=== PATIENT | female | born 1975 | race Caucasian/White ===

== ENCOUNTER 2023-06-30 12:50 | Emergency (ER) | payer SELFPAY ==
[~2023-06-30] VITALS: Ht 175.3 cm; Wt 63.5 kg
[2023-06-30] MEDS ORDERED: CYCLOBENZAPRINE HCL 10 MG TABLET PO ONE (13:15)
[2023-06-30] MEDS ORDERED: MORPHINE SULFATE 4 MG/1 ML DISP.SYRIN IV ONE (13:15)
[2023-06-30] MEDS ORDERED: CYCLOBENZAPRINE HCL 10 MG TABLET ONE (13:39)
[2023-06-30] MEDS ORDERED: MORPHINE SULFATE 4 MG/1 ML DISP.SYRIN ONE (13:39)
[2023-06-30 13:53] LABS: BASOPHILS # (AUTO) 0.1 K/UL (0.0-0.2); BASOPHILS % (AUTO) 0.3 % (0.0-2.0); EOSINOPHILS # (AUTO) 0.1 K/uL (0.0-0.7); EOSINOPHILS % (AUTO) 0.3 % (0.0-7.0); HEMATOCRIT 40.7 % (31.2-41.9); HEMOGLOBIN 13.6 g/dL (10.9-14.3); LYMPHOCYTES # (AUTO) 0.7 K/uL (0.8-4.8); LYMPHOCYTES % (AUTO) 2.9 % (20.5-51.5); MEAN CORPUSCULAR HEMOGLOBIN 34.6 uug (24.7-32.8); MEAN CORPUSCULAR HGB CONC 33 g/dL (32.3-35.6); MEAN CORPUSCULAR VOLUME 103.4 fL (75.5-95.3); MONOCYTES # (AUTO) 0.5 K/uL (0.1-1.30); MONOCYTES % (AUTO) 2.2 % (0.0-11.0); NEUTROPHILS # (AUTO) 21.9 K/uL (1.8-8.9); NEUTROPHILS % (AUTO) 94.3 % (38.5-71.5); PLATELET COUNT (AUTO) 245 K/uL (179-408); RED BLOOD CELL COUNT(AUTO) 3.94 MIL/uL (3.63-4.92); RED CELL DISTRIBUTION WIDTH 14.5 % (12.3-17.7); WHITE BLOOD COUNT (AUTO) 23.2 K/uL (3.8-11.8)
[2023-06-30 13:55] LABS: DIFFERENTIAL COMMENT 1
[2023-06-30 14:13] LABS: ALBUMIN 1.9 g/dL (3.4-5.0); BILIRUBIN,TOTAL 2.4 mg/dL (0.2-1.0); CALCIUM 9.6 mg/dL (8.5-10.1); CREATININE 1.4 mg/dL (0.6-1.3); POTASSIUM 3.3 mmol/L (3.5-5.1); TOTAL PROTEIN, SERUM 7.6 g/dL (6.4-8.2)
[2023-06-30] MEDS ORDERED: IV NORMAL SALINE 500 ML BAG IV ONE (14:30)
[2023-06-30 14:46] LABS: AMMONIA < 10 umol/L (11-32)
[2023-06-30 14:55] LABS: BASOPHILS # (AUTO) 0.1 K/UL (0.0-0.2); BASOPHILS % (AUTO) 0.3 % (0.0-2.0); EOSINOPHILS # (AUTO) 0.1 K/uL (0.0-0.7); EOSINOPHILS % (AUTO) 0.3 % (0.0-7.0); HEMATOCRIT 38.7 % (31.2-41.9); HEMOGLOBIN 13.1 g/dL (10.9-14.3); LYMPHOCYTES # (AUTO) 0.7 K/uL (0.8-4.8); LYMPHOCYTES % (AUTO) 3.9 % (20.5-51.5); MEAN CORPUSCULAR HEMOGLOBIN 34.7 uug (24.7-32.8); MEAN CORPUSCULAR HGB CONC 34 g/dL (32.3-35.6); MEAN CORPUSCULAR VOLUME 102.6 fL (75.5-95.3); MONOCYTES # (AUTO) 0.8 K/uL (0.1-1.30); MONOCYTES % (AUTO) 4.2 % (0.0-11.0); NEUTROPHILS # (AUTO) 16.7 K/uL (1.8-8.9); NEUTROPHILS % (AUTO) 91.3 % (38.5-71.5); PLATELET COUNT (AUTO) 231 K/uL (179-408); RED BLOOD CELL COUNT(AUTO) 3.77 MIL/uL (3.63-4.92); RED CELL DISTRIBUTION WIDTH 14.7 % (12.3-17.7); WHITE BLOOD COUNT (AUTO) 18.3 K/uL (3.8-11.8)
[2023-06-30 14:59] LABS: DIFFERENTIAL COMMENT 1
[2023-06-30 15:01] LABS: *BILIRUBIN,URIN 2+ (NEGATIVE); *BLOOD, URINE 3+ (NEGATIVE); *CLARITY,URINE TURBID (CLEAR); *COLOR,URINE YELLOW (YELLOW); *KETONES,URINE TRACE (NEGATIVE); *PROTEIN,URINE 3+ (NEGATIVE); LEUKOCYTE ESTERASE ,URINE TRACE (NEGATIVE); NITRITE, URINE POSITIVE (NEGATIVE); UGLUCOSE NEGATIVE (NEGATIVE)
[2023-06-30 15:03] LABS: *URINE HCG, QUAL NEGATIVE (NEGATIVE)
[2023-06-30 15:06] LABS: BACTERIA,URINE MANY /HPF (NONE SEEN); SQUAMOUS EPITHELIAL CELL,UR FEW /HPF (NONE SEEN); WBC,URINE 80-100 /HPF (0-3)
[2023-06-30 15:07] LABS: MUCUS,URINE MODERATE /LPF (0-FEW)
[2023-06-30 15:14] LABS: ACETAMINOPHEN < 2.0 ug/mL (10-30)
[2023-06-30] MEDS ORDERED: CEFTRIAXONE 1 G in IV DEXTROSE 5% 50 ML IV ONE (15:15)
[2023-06-30 15:19] LABS: CALCIUM 9.1 mg/dL (8.5-10.1); CREATININE 1.3 mg/dL (0.6-1.3); POTASSIUM 3.3 mmol/L (3.5-5.1)
[2023-06-30] MEDS ORDERED: CEFTRIAXONE /D5W 50ML IVPB **ER PYXIS IV ONE (15:19)
[2023-06-30 15:24] LABS: ALBUMIN 1.8 g/dL (3.4-5.0); BILIRUBIN,TOTAL 2.3 mg/dL (0.2-1.0); TOTAL PROTEIN, SERUM 6.8 g/dL (6.4-8.2)
[2023-06-30 15:39] LABS: LACTIC ACID 3.3 mmol/L (0.4-2.0)
[2023-06-30 16:38] VITALS: BP 128/67; TEMP 98; O2SAT 97
[2023-06-30] MEDS ORDERED: CYCL5TAB PO (16:44)
[2023-06-30] MEDS ORDERED: HYDR-4209 PO (16:44)
[2023-06-30] MEDS ORDERED: NITR100C11 PO (16:44)
[2023-06-30 21:21] LABS: BAND % (MANUAL) 34 % (0-10); LYMPHOCYTES % (MANUAL) 3 % (20-40); METAMYELOCYTES % 4 % (0-1); MONOCYTES % (MANUAL) 2 % (2-10); MYELOCYTES % 2 % (0-0); NEUTROPHILS % (MANUAL) 57 % (42-75)
[2023-06-30 21:22] LABS: ANISOCYTOSIS 1+; PLATELET ESTIMATE DECREASED
[2023-07-01 11:06] LABS: HEPATITIS A AB, IgM Negative (Negative); HEPATITIS B CORE AB, IgM Negative (Negative); HEPATITIS B CORE AB, TOTAL Negative (Negative); HEPATITIS B SURFACE AB, QUAL Non Reactive (.); HEPATITIS C VIRUS ANTIBODY Non Reactive (Non Reactive)
[2023-07-01] MEDS ORDERED: MV-M1TAB55 PO (15:39)
== END 2023-06-30 17:11 | disposition home or self-care (01) ==
LOC: ER 12:50
DX: N39.0 Urinary tract infection, site not specified (principal); N17.9 Acute kidney failure, unspecified; D72.829 Elevated white blood cell count, unspecified; M79.605 Pain in left leg; Z88.1 Allergy status to other antibiotic agents
CPT/HCPCS: 99285; 93970; 96365; 76705; 71045; 96361; 96375; 81001; 82140; 82550; 84703; 83880; 85025 ×2; 85379; 36415; 73080; 73090; 73110; 83605; 87086; 86803; 86705; 86709; 86706; 80299; 86704; 80053 ×2; 85007; J0696; J2270; J7040 ×2; 70030-TC; A4606; A4663

== ENCOUNTER 2023-07-01 15:06 | Inpatient (IN) | payer MEDICAID ==
[~2023-07-01] VITALS: Ht 182.9 cm; Wt 74.4 kg
[~2023-07-01 15:06] MED LIST: CYCL5TAB PO; HYDR-4209 PO; NITR100C11 PO
[2023-07-01] MEDS ORDERED: MV-M1TAB55 PO (15:39)
[2023-07-01 16:11] LABS: BASOPHILS # (AUTO) 0.1 K/UL (0.0-0.2); BASOPHILS % (AUTO) 0.5 % (0.0-2.0); EOSINOPHILS % (AUTO) 0.2 % (0.0-7.0); HEMATOCRIT 39.7 % (31.2-41.9); HEMOGLOBIN 13.2 g/dL (10.9-14.3); LYMPHOCYTES # (AUTO) 0.8 K/uL (0.8-4.8); LYMPHOCYTES % (AUTO) 3.8 % (20.5-51.5); MEAN CORPUSCULAR HEMOGLOBIN 34.2 uug (24.7-32.8); MEAN CORPUSCULAR HGB CONC 33 g/dL (32.3-35.6); MONOCYTES # (AUTO) 0.4 K/uL (0.1-1.30); MONOCYTES % (AUTO) 2.1 % (0.0-11.0); NEUTROPHILS % (AUTO) 93.4 % (38.5-71.5); PLATELET COUNT (AUTO) 252 K/uL (179-408); RED BLOOD CELL COUNT(AUTO) 3.86 MIL/uL (3.63-4.92); RED CELL DISTRIBUTION WIDTH 14.6 % (12.3-17.7); WHITE BLOOD COUNT (AUTO) 20.4 K/uL (3.8-11.8)
[2023-07-01 16:13] LABS: *BLOOD, URINE 3+ (NEGATIVE); *CLARITY,URINE CLOUDY (CLEAR); *COLOR,URINE Orange (YELLOW); *KETONES,URINE TRACE (NEGATIVE); LEUKOCYTE ESTERASE ,URINE NEGATIVE (NEGATIVE); NITRITE, URINE NEGATIVE (NEGATIVE); PH,URINE 5.5 (5.0-8.0); UGLUCOSE NEGATIVE (NEGATIVE)
[2023-07-01 16:35] LABS: *BILIRUBIN,URIN 3+ (NEGATIVE); *PROTEIN,URINE 3+ (NEGATIVE)
[2023-07-01 16:36] LABS: PREGNANCY TEST SERUM QUAN 4 miul/L (0-6)
[2023-07-01 16:39] LABS: DIFFERENTIAL COMMENT 1
[2023-07-01 16:51] LABS: CALCIUM 9.3 mg/dL (8.5-10.1); CARBON DIOXIDE 25 mmol/L (21-32); CHLORIDE 99 mmol/L (98-107); CREATININE 1.1 mg/dL (0.6-1.3); GLUCOSE 140 mg/dL (74-106); POTASSIUM 3.2 mmol/L (3.5-5.1); SODIUM SERUM 135 mmol/L (136-145); UREA NITROGEN, BLOOD 51 mg/dL (7-18)
[2023-07-01 16:55] LABS: ALANINE AMINOTRANSFERASE 121 U/L (14-59); ALBUMIN 1.6 g/dL (3.4-5.0); ALKALINE PHOSPHATASE 173 U/L (50-136); ASPARTATE AMINOTRANSFERASE 155 U/L (15-37); BILIRUBIN,DIRECT 2.2 mg/dL (0.0-0.2); BILIRUBIN,TOTAL 2.6 mg/dL (0.2-1.0); LIPASE 25 U/L (16-77); TOTAL PROTEIN, SERUM 6.9 g/dL (6.4-8.2)
[2023-07-01 16:56] LABS: LACTIC ACID 2.2 mmol/L (0.4-2.0)
[2023-07-01 18:01] LABS: BACTERIA,URINE MODERATE /HPF (NONE SEEN); URINE AMORPHOUS URATE MANY /HPF; WBC,URINE 0-3 /HPF (0-3)
[2023-07-01] MEDS ORDERED: CEFTRIAXONE /D5W 50ML IVPB **ER PYXIS IV ONE (19:27)
[2023-07-01] MEDS: CEFTRIAXONE 2 G in IV DEXTROSE 5% 100 ML IV ONE (19:30)
[2023-07-01] MEDS: IV NORMAL SALINE 1000 ML BAG IV ONE (19:30)
[2023-07-01] MEDS ORDERED: VANCOMYCIN IV 200 ML ONE (20:20)
[2023-07-01] MEDS: VANCOMYCIN IV 1,000 MG in IV DEXTROSE 5% 250 ML IV ONE (20:23)
[2023-07-01] MEDS ORDERED: ONDANSETRON 4 MG/2 ML VIAL IV PRN (22:45)
[2023-07-01] MEDS ORDERED: PIPERACILLIN SODIUM/TAZO 3.375 GM VIAL ONE (23:52)
[2023-07-02] MEDS: PIPERACILLIN SODIUM/TAZOBACTAM 3.375 G in IV DEXTROSE 5% 50 ML IV ONE (00:42)
[2023-07-02] MEDS: HYDROCODONE/APAP 5-325MG TABLET PO PRN (00:45)
[2023-07-02 00:46] VITALS: BP 117/68; TEMP 98; O2SAT 99
[2023-07-02 04:05] VITALS: BP 122/81; TEMP 97.8; O2SAT 90
[2023-07-02] MEDS: PANTOPRAZOLE SODIUM 40 MG TABLET.DR PO SCH (06:15)
[2023-07-02] MEDS: PIPERACILLIN SODIUM/TAZOBACTAM 3.375 G in IV DEXTROSE 5% 100 ML IV SCH (07:48)
[2023-07-02 07:54] LABS: BASOPHILS % (AUTO) 0.2 % (0.0-2.0); EOSINOPHILS % (AUTO) 0.2 % (0.0-7.0); HEMATOCRIT 34.6 % (31.2-41.9); HEMOGLOBIN 11.8 g/dL (10.9-14.3); LYMPHOCYTES # (AUTO) 0.7 K/uL (0.8-4.8); LYMPHOCYTES % (AUTO) 4.3 % (20.5-51.5); MEAN CORPUSCULAR HEMOGLOBIN 34.9 uug (24.7-32.8); MEAN CORPUSCULAR HGB CONC 34 g/dL (32.3-35.6); MEAN CORPUSCULAR VOLUME 102.6 fL (75.5-95.3); MONOCYTES # (AUTO) 0.5 K/uL (0.1-1.30); MONOCYTES % (AUTO) 3.3 % (0.0-11.0); NEUTROPHILS # (AUTO) 14.9 K/uL (1.8-8.9); PLATELET COUNT (AUTO) 226 K/uL (179-408); RED BLOOD CELL COUNT(AUTO) 3.37 MIL/uL (3.63-4.92); RED CELL DISTRIBUTION WIDTH 14.6 % (12.3-17.7); WHITE BLOOD COUNT (AUTO) 16.2 K/uL (3.8-11.8)
[2023-07-02 07:59] LABS: DIFFERENTIAL COMMENT 1
[2023-07-02 08:20] LABS: THYROID STIMULATING HORMONE 1.963 mIU/mL (0.358-3.740)
[2023-07-02 08:26] LABS: BILIRUBIN,TOTAL 1.7 mg/dL (0.2-1.0); CALCIUM 8.4 mg/dL (8.5-10.1); CREATININE 0.8 mg/dL (0.6-1.3); MAGNESIUM 2.6 mg/dL (1.8-2.4); PHOSPHOROUS 4.4 mg/dL (2.5-4.9); POTASSIUM 3.1 mmol/L (3.5-5.1); TOTAL PROTEIN, SERUM 5.6 g/dL (6.4-8.2)
[2023-07-02 08:28] LABS: ALBUMIN 1.2 g/dL (3.4-5.0)
[2023-07-02] MEDS: VANCOMYCIN IV 1,000 MG in IV DEXTROSE 5% 250 ML IV SCH (11:26)
[2023-07-02] MEDS: POTASSIUM CHLORIDE 20 MEQ TAB.PRT.SR PO ONE (11:26)
[2023-07-02] MEDS ORDERED: VANCOMYCIN IV 1,000 MG in IV DEXTROSE 5% 250 ML IV SCH (12:00)
[2023-07-02 12:15] VITALS: BP 106/74; TEMP 97.8; O2SAT 98
[2023-07-02 12:42] LABS: *AMPHETAMINE, URINE NEGATIVE (NEGATIVE); *BARBITURATE, URINE NEGATIVE (NEGATIVE); *BENZODIAZEPINE, URINE NEGATIVE (NEGATIVE); *CANNABINOID, URINE NEGATIVE (NEGATIVE); *COCCAINE, URINE NEGATIVE (NEGATIVE); *OPIATE, URINE POSITIVE (NEGATIVE); *PHENCYCLIDINE SCREEN,URINE NEGATIVE (NEGATIVE); FENTANYL, URINE NEGATIVE (NEGATIVE)
[2023-07-02] MEDS ORDERED: PIPERACILLIN SODIUM/TAZOBACTAM 3.375 G in IV DEXTROSE 5% 50 ML IV SCH (14:00)
[2023-07-02 20:45] VITALS: BP 135/75; TEMP 98.8; O2SAT 99
[2023-07-03] MEDS: PIPERACILLIN SODIUM/TAZOBACTAM 3.375 G in IV DEXTROSE 5% 50 ML IV SCH (00:58)
[2023-07-03 05:56] VITALS: BP 138/88; TEMP 97.9; O2SAT 97
[2023-07-03 07:39] LABS: BASOPHILS # (AUTO) 0.1 K/UL (0.0-0.2); BASOPHILS % (AUTO) 0.4 % (0.0-2.0); EOSINOPHILS % (AUTO) 0.2 % (0.0-7.0); HEMATOCRIT 32.6 % (31.2-41.9); HEMOGLOBIN 11.1 g/dL (10.9-14.3); LYMPHOCYTES % (AUTO) 5.9 % (20.5-51.5); MEAN CORPUSCULAR HEMOGLOBIN 35.1 uug (24.7-32.8); MEAN CORPUSCULAR HGB CONC 34 g/dL (32.3-35.6); MEAN CORPUSCULAR VOLUME 102.5 fL (75.5-95.3); MONOCYTES # (AUTO) 0.8 K/uL (0.1-1.30); NEUTROPHILS # (AUTO) 14.8 K/uL (1.8-8.9); NEUTROPHILS % (AUTO) 88.5 % (38.5-71.5); PLATELET COUNT (AUTO) 260 K/uL (179-408); RED BLOOD CELL COUNT(AUTO) 3.18 MIL/uL (3.63-4.92); WHITE BLOOD COUNT (AUTO) 16.8 K/uL (3.8-11.8)
[2023-07-03 07:42] LABS: DIFFERENTIAL COMMENT 1
[2023-07-03 07:52] LABS: BILIRUBIN,TOTAL 1.5 mg/dL (0.2-1.0); CREATININE 0.7 mg/dL (0.6-1.3); PHOSPHOROUS 4.6 mg/dL (2.5-4.9); POTASSIUM 3.4 mmol/L (3.5-5.1); TOTAL PROTEIN, SERUM 5.8 g/dL (6.4-8.2)
[2023-07-03 08:46] LABS: ALBUMIN 1.1 g/dL (3.4-5.0)
[2023-07-03 11:08] LABS: BAND % (MANUAL) 15 % (0-10); NEUTROPHILS % (MANUAL) 64 % (42-75)
[2023-07-03 11:09] LABS: ANISOCYTOSIS 1+; EOSINOPHILS % (MANUAL) 1 % (0-8); LYMPHOCYTES % (MANUAL) 8 % (20-40); MONOCYTES % (MANUAL) 10 % (2-10); PLATELET ESTIMATE ADEQUATE
[2023-07-03 11:34] VITALS: BP 124/83; TEMP 98; O2SAT 98
[2023-07-03] MEDS: POTASSIUM CHLORIDE 20 MEQ TAB.PRT.SR PO ONE (13:30)
[2023-07-03 15:48] VITALS: BP 134/85; TEMP 98.3; O2SAT 93
[2023-07-03] MEDS: IV NS 1000 ML 1,000 ML IV PRN (16:30)
[2023-07-03 20:00] VITALS: BP 123/70; TEMP 98.8; O2SAT 95
[2023-07-04 04:00] VITALS: BP 143/83; TEMP 98.2; O2SAT 97
[2023-07-04 07:26] LABS: BASOPHILS # (AUTO) 0.1 K/UL (0.0-0.2); BASOPHILS % (AUTO) 0.3 % (0.0-2.0); EOSINOPHILS % (AUTO) 0.1 % (0.0-7.0); HEMATOCRIT 30.2 % (31.2-41.9); HEMOGLOBIN 10.3 g/dL (10.9-14.3); LYMPHOCYTES # (AUTO) 1.1 K/uL (0.8-4.8); LYMPHOCYTES % (AUTO) 6.2 % (20.5-51.5); MEAN CORPUSCULAR HEMOGLOBIN 34.9 uug (24.7-32.8); MEAN CORPUSCULAR HGB CONC 34 g/dL (32.3-35.6); MEAN CORPUSCULAR VOLUME 102.1 fL (75.5-95.3); MONOCYTES # (AUTO) 1.3 K/uL (0.1-1.30); MONOCYTES % (AUTO) 7.5 % (0.0-11.0); NEUTROPHILS # (AUTO) 14.5 K/uL (1.8-8.9); NEUTROPHILS % (AUTO) 85.9 % (38.5-71.5); PLATELET COUNT (AUTO) 288 K/uL (179-408); RED BLOOD CELL COUNT(AUTO) 2.96 MIL/uL (3.63-4.92); RED CELL DISTRIBUTION WIDTH 14.8 % (12.3-17.7); WHITE BLOOD COUNT (AUTO) 16.9 K/uL (3.8-11.8)
[2023-07-04 07:50] LABS: DIFFERENTIAL COMMENT 1
[2023-07-04 08:13] LABS: BILIRUBIN,TOTAL 1.2 mg/dL (0.2-1.0); CALCIUM 8.3 mg/dL (8.5-10.1); CREATININE 0.6 mg/dL (0.6-1.3); MAGNESIUM 2.1 mg/dL (1.8-2.4); POTASSIUM 3.8 mmol/L (3.5-5.1); TOTAL PROTEIN, SERUM 5.8 g/dL (6.4-8.2)
[2023-07-04 08:18] LABS: ALBUMIN 1.1 g/dL (3.4-5.0)
[2023-07-04 09:30] LABS: HIV-1 p24 ANTIGEN NON REACTIVE (NONREACTIVE); HIV-1/2 ANTIBODY NON REACTIVE (NONREACTIVE)
[2023-07-04 11:47] VITALS: BP 133/84; TEMP 98.9; O2SAT 97
[2023-07-04] MEDS ORDERED: IV NORMAL SALINE 250 ML IV ONE (13:53)
[2023-07-04] MEDS ORDERED: SWABABLE VALVE TRANSFER SET EA MC ONE (13:53)
[2023-07-04] MEDS ORDERED: IOHEXOL 300MG/ML 100 ML INFUS..BTL ONE (13:53)
[2023-07-04] MEDS: PIPERACILLIN SODIUM/TAZOBACTAM 3.375 G in IV DEXTROSE 5% 100 ML IV SCH (15:09)
[2023-07-04 16:01] VITALS: BP 135/92; TEMP 98.4; O2SAT 99
[2023-07-04] MEDS: PROTEIN SUPPLEMENT (PROSTAT) 30 ML LIQUID PO SCH (18:05)
[2023-07-04 20:15] VITALS: BP 134/89; TEMP 98; O2SAT 100
[2023-07-04] MEDS: ENOXAPARIN SODIUM 40 MG/0.4 ML DISP.SYRIN SQ SCH (20:43)
[2023-07-04] MEDS: CEFAZOLIN 2 G in IV DEXTROSE 5% 100 ML IV SCH (23:53)
[2023-07-05 04:20] VITALS: BP 147/94; TEMP 98; O2SAT 96
[2023-07-05 11:40] VITALS: BP 125/84; TEMP 98.7; O2SAT 98
[2023-07-05 16:00] VITALS: BP 134/88; TEMP 98.3; O2SAT 98
[2023-07-05] MEDS: CEFEPIME HCL 2 GM in IV DEXTROSE 5% 100 ML IV SCH (16:47)
[2023-07-05] MEDS: CLINDAMYCIN PHOSPHATE IV 900 MG in IV DEXTROSE 5% 100 ML IV SCH (17:23)
[2023-07-05] MEDS: VANCOMYCIN IV 1,000 MG in IV DEXTROSE 5% 250 ML IV SCH (18:09)
[2023-07-05 19:25] VITALS: BP 125/83; TEMP 98.5; O2SAT 98
[2023-07-05] MEDS: MORPHINE SULFATE 2 MG/1 ML DISP.SYRIN IV PRN (21:15)
[2023-07-06 06:03] VITALS: BP 136/89; TEMP 98.1; O2SAT 98
[2023-07-06 07:20] LABS: BASOPHILS # (AUTO) 0.1 K/UL (0.0-0.2); BASOPHILS % (AUTO) 0.6 % (0.0-2.0); EOSINOPHILS # (AUTO) 0.1 K/uL (0.0-0.7); EOSINOPHILS % (AUTO) 0.8 % (0.0-7.0); HEMATOCRIT 28.2 % (31.2-41.9); HEMOGLOBIN 9.7 g/dL (10.9-14.3); LYMPHOCYTES # (AUTO) 0.8 K/uL (0.8-4.8); LYMPHOCYTES % (AUTO) 7.2 % (20.5-51.5); MEAN CORPUSCULAR HEMOGLOBIN 34.7 uug (24.7-32.8); MEAN CORPUSCULAR HGB CONC 34 g/dL (32.3-35.6); MEAN CORPUSCULAR VOLUME 101.4 fL (75.5-95.3); MONOCYTES % (AUTO) 8.6 % (0.0-11.0); NEUTROPHILS # (AUTO) 9.2 K/uL (1.8-8.9); NEUTROPHILS % (AUTO) 82.8 % (38.5-71.5); PLATELET COUNT (AUTO) 421 K/uL (179-408); RED BLOOD CELL COUNT(AUTO) 2.78 MIL/uL (3.63-4.92); RED CELL DISTRIBUTION WIDTH 14.4 % (12.3-17.7); WHITE BLOOD COUNT (AUTO) 11.1 K/uL (3.8-11.8)
[2023-07-06 07:34] LABS: DIFFERENTIAL COMMENT 1
[2023-07-06 07:36] LABS: CALCIUM 8.5 mg/dL (8.5-10.1); CREATININE 0.6 mg/dL (0.6-1.3); POTASSIUM 3.5 mmol/L (3.5-5.1)
[2023-07-06 07:50] VITALS: BP 127/86; TEMP 98.3; O2SAT 100
[2023-07-06 11:35] VITALS: BP 151/91; TEMP 97.9; O2SAT 100
[2023-07-06 15:40] VITALS: BP 115/69; TEMP 99.2; O2SAT 98
[2023-07-06 17:31] LABS: BAND % (MANUAL) 8 % (0-10); LYMPHOCYTES % (MANUAL) 11 % (20-40); MONOCYTES % (MANUAL) 12 % (2-10); NEUTROPHILS % (MANUAL) 69 % (42-75)
[2023-07-06 17:32] LABS: ANISOCYTOSIS 1+; PLATELET ESTIMATE ADEQUATE
[2023-07-06 17:40] LABS: *RHEUMATOID FACTOR SCREEN NEGATIVE (NEGATIVE)
[2023-07-06 18:34] LABS: FERRITIN 1699 ng/mL (8-252)
[2023-07-06] MEDS: VANCOMYCIN IV 1,250 MG in IV DEXTROSE 5% 250 ML IV SCH (19:15)
[2023-07-06 20:25] VITALS: BP 142/88; TEMP 98; O2SAT 100
[2023-07-07 00:55] VITALS: TEMP 98.9
[2023-07-07 06:20] VITALS: BP 137/87; TEMP 100.2; O2SAT 98
[2023-07-07 07:31] LABS: BASOPHILS # (AUTO) 0.4 K/UL (0.0-0.2); BASOPHILS % (AUTO) 4.7 % (0.0-2.0); EOSINOPHILS # (AUTO) 0.1 K/uL (0.0-0.7); EOSINOPHILS % (AUTO) 1.1 % (0.0-7.0); HEMATOCRIT 29.3 % (31.2-41.9); HEMOGLOBIN 10.1 g/dL (10.9-14.3); LYMPHOCYTES # (AUTO) 0.6 K/uL (0.8-4.8); LYMPHOCYTES % (AUTO) 6.9 % (20.5-51.5); MEAN CORPUSCULAR HEMOGLOBIN 34.7 uug (24.7-32.8); MEAN CORPUSCULAR HGB CONC 34 g/dL (32.3-35.6); MEAN CORPUSCULAR VOLUME 100.9 fL (75.5-95.3); MONOCYTES # (AUTO) 0.8 K/uL (0.1-1.30); NEUTROPHILS # (AUTO) 6.6 K/uL (1.8-8.9); NEUTROPHILS % (AUTO) 78.3 % (38.5-71.5); PLATELET COUNT (AUTO) 490 K/uL (179-408); RED BLOOD CELL COUNT(AUTO) 2.91 MIL/uL (3.63-4.92); RED CELL DISTRIBUTION WIDTH 14.3 % (12.3-17.7); WHITE BLOOD COUNT (AUTO) 8.4 K/uL (3.8-11.8)
[2023-07-07 07:49] LABS: DIFFERENTIAL COMMENT 1
[2023-07-07 08:26] LABS: BILIRUBIN,TOTAL 0.7 mg/dL (0.2-1.0); CALCIUM 8.3 mg/dL (8.5-10.1); CREATININE 0.6 mg/dL (0.6-1.3); MAGNESIUM 1.9 mg/dL (1.8-2.4); PHOSPHOROUS 3.9 mg/dL (2.5-4.9); POTASSIUM 3.6 mmol/L (3.5-5.1); TOTAL PROTEIN, SERUM 6.2 g/dL (6.4-8.2)
[2023-07-07 08:45] LABS: ALBUMIN 1.4 g/dL (3.4-5.0)
[2023-07-07 09:07] LABS: *IMMUNOGLOBULIN G, SERUM 1450 mg/dL (586-1602); HEPATITIS B SURFACE AB, QUAL Non Reactive (.); HEPATITIS B SURFACE AG Negative (Negative); IMMUNOGLOBULIN A, SERUM 245 mg/dL (87-352); IMMUNOGLOBULIN M, SERUM 325 mg/dL (26-217)
[2023-07-07 10:10] LABS: *ANTI-SCLERODERMA-70 AB <0.2 AI (0.0-0.9); *RNP ANTIBODIES <0.2 AI (0.0-0.9); *SJOGREN'S ANTI-SS-A <0.2 AI (0.0-0.9); *SJOGREN'S ANTI-SS-B <0.2 AI (0.0-0.9); *SMITH ANTIBODIES <0.2 AI (0.0-0.9); ANTI-DNA(DS) AB, QN <1 IU/mL (0-9); ANTI-NUCLEAR AB DIRECT Negative (Negative)
[2023-07-07] MEDS ORDERED: SWABABLE VALVE TRANSFER SET EA MC ONE (10:41)
[2023-07-07] MEDS ORDERED: IOHEXOL 300MG/ML 100 ML INFUS..BTL ONE (10:41)
[2023-07-07] MEDS ORDERED: IV NORMAL SALINE 250 ML IV ONE (10:41)
[2023-07-07 11:59] VITALS: BP 141/91; TEMP 98; O2SAT 99
[2023-07-07 13:08] LABS: FREE LAMBDA LT CHAIN SERUM 143.1 mg/L (5.7-26.3); KAPPA/LAMBDA RATIO SERUM 0.41 (0.26-1.65)
[2023-07-07 16:01] VITALS: BP 125/85; TEMP 98.4; O2SAT 97
[2023-07-07] MEDS: MORPHINE SULFATE 2 MG/1 ML DISP.SYRIN IV PRN (18:38)
[2023-07-07 20:00] VITALS: BP 139/88; TEMP 99; O2SAT 99
[2023-07-07] MEDS: NORMAL SALINE IV SCH (21:06)
[2023-07-07] MEDS: CLINDAMYCIN PHOSPHATE IV SCH (21:06)
[2023-07-08 04:00] VITALS: BP 130/80; TEMP 98.5; O2SAT 95
[2023-07-08 04:29] LABS: BASOPHILS % (AUTO) 0.3 % (0.0-2.0); EOSINOPHILS # (AUTO) 0.1 K/uL (0.0-0.7); EOSINOPHILS % (AUTO) 1.4 % (0.0-7.0); HEMATOCRIT 28.9 % (31.2-41.9); HEMOGLOBIN 10.2 g/dL (10.9-14.3); LYMPHOCYTES # (AUTO) 1.1 K/uL (0.8-4.8); LYMPHOCYTES % (AUTO) 12.5 % (20.5-51.5); MEAN CORPUSCULAR HEMOGLOBIN 35.2 uug (24.7-32.8); MEAN CORPUSCULAR HGB CONC 35 g/dL (32.3-35.6); MEAN CORPUSCULAR VOLUME 100.1 fL (75.5-95.3); MONOCYTES # (AUTO) 0.8 K/uL (0.1-1.30); MONOCYTES % (AUTO) 9.4 % (0.0-11.0); NEUTROPHILS # (AUTO) 6.5 K/uL (1.8-8.9); NEUTROPHILS % (AUTO) 76.4 % (38.5-71.5); PLATELET COUNT (AUTO) 599 K/uL (179-408); RED BLOOD CELL COUNT(AUTO) 2.89 MIL/uL (3.63-4.92); RED CELL DISTRIBUTION WIDTH 14.3 % (12.3-17.7); WHITE BLOOD COUNT (AUTO) 8.5 K/uL (3.8-11.8)
[2023-07-08 04:54] LABS: CALCIUM 8.3 mg/dL (8.5-10.1); CARBON DIOXIDE 27 mmol/L (21-32); CHLORIDE 103 mmol/L (98-107); CREATININE 0.6 mg/dL (0.6-1.3); GLUCOSE 124 mg/dL (74-106); POTASSIUM 3.4 mmol/L (3.5-5.1); SODIUM SERUM 136 mmol/L (136-145); UREA NITROGEN, BLOOD 6 mg/dL (7-18)
[2023-07-08 05:31] LABS: DIFFERENTIAL COMMENT 1
[2023-07-08] MEDS: POTASSIUM CHLORIDE 20 MEQ TAB.PRT.SR PO SCH (10:25)
[2023-07-08 11:23] VITALS: BP 125/82; TEMP 98.1; O2SAT 99
[2023-07-08] MEDS ORDERED: ALPRAZOLAM 0.5 MG TABLET PO SCH (12:15)
[2023-07-08] MEDS: ALPRAZOLAM 0.5 MG TABLET PO ONE (12:19)
[2023-07-08 15:48] VITALS: BP 136/84; TEMP 98.2; O2SAT 98
[2023-07-08] MEDS: GABAPENTIN 300 MG CAPSULE PO SCH (17:06)
[2023-07-08] MEDS ORDERED: GADOTERATE MEGLUMINE 10 MMOL/20 ML VIAL IV ONE (17:20)
[2023-07-09 07:56] LABS: BASOPHILS # (AUTO) 0.1 K/UL (0.0-0.2); BASOPHILS % (AUTO) 1.5 % (0.0-2.0); EOSINOPHILS # (AUTO) 0.1 K/uL (0.0-0.7); EOSINOPHILS % (AUTO) 1.8 % (0.0-7.0); HEMOGLOBIN 10.4 g/dL (10.9-14.3); LYMPHOCYTES # (AUTO) 0.7 K/uL (0.8-4.8); LYMPHOCYTES % (AUTO) 12.6 % (20.5-51.5); MEAN CORPUSCULAR HEMOGLOBIN 34.8 uug (24.7-32.8); MEAN CORPUSCULAR HGB CONC 35 g/dL (32.3-35.6); MEAN CORPUSCULAR VOLUME 100.3 fL (75.5-95.3); MONOCYTES # (AUTO) 0.6 K/uL (0.1-1.30); MONOCYTES % (AUTO) 10.6 % (0.0-11.0); NEUTROPHILS # (AUTO) 4.3 K/uL (1.8-8.9); NEUTROPHILS % (AUTO) 73.5 % (38.5-71.5); PLATELET COUNT (AUTO) 669 K/uL (179-408); RED BLOOD CELL COUNT(AUTO) 2.99 MIL/uL (3.63-4.92); RED CELL DISTRIBUTION WIDTH 14.3 % (12.3-17.7); WHITE BLOOD COUNT (AUTO) 5.9 K/uL (3.8-11.8)
[2023-07-09 07:58] LABS: DIFFERENTIAL COMMENT 1
[2023-07-09 08:10] LABS: CALCIUM 8.5 mg/dL (8.5-10.1); CREATININE 0.6 mg/dL (0.6-1.3); MAGNESIUM 1.8 mg/dL (1.8-2.4); PHOSPHOROUS 3.8 mg/dL (2.5-4.9); POTASSIUM 3.6 mmol/L (3.5-5.1)
[2023-07-09 12:00] VITALS: BP 132/83; TEMP 97.7; O2SAT 95
[2023-07-09 16:00] VITALS: BP 111/76; TEMP 98.1; O2SAT 100
[2023-07-09] MEDS: ENSURE ENLIVE (VAN) 240 ML LIQUID PO SCH (17:47)
[2023-07-09 21:00] VITALS: BP 130/80; TEMP 98; O2SAT 99
[2023-07-10] VITALS (7 sets, daily range): BP systolic 119–138; BP diastolic 68–89; TEMP 98–99.7; O2SAT 98–100
[2023-07-10 08:06] LABS: A/G RATIO 0.4 (0.7-1.7); ALBUMIN 1.8 g/dL (2.9-4.4); ALPHA-1-GLOBULIN 0.5 g/dL (0.0-0.4); GAMMA GLOBULIN 1.7 g/dL (0.4-1.8); GLOBULIN, TOTAL 4.2 g/dL (2.2-3.9); M-SPIKE Not Observed g/dL (Not Observed)
[2023-07-10 08:39] LABS: BASOPHILS # (AUTO) 0.2 K/UL (0.0-0.2); BASOPHILS % (AUTO) 3.3 % (0.0-2.0); EOSINOPHILS # (AUTO) 0.1 K/uL (0.0-0.7); EOSINOPHILS % (AUTO) 2.5 % (0.0-7.0); HEMATOCRIT 29.8 % (31.2-41.9); HEMOGLOBIN 10.3 g/dL (10.9-14.3); LYMPHOCYTES % (AUTO) 18.9 % (20.5-51.5); MEAN CORPUSCULAR HEMOGLOBIN 34.6 uug (24.7-32.8); MEAN CORPUSCULAR HGB CONC 35 g/dL (32.3-35.6); MEAN CORPUSCULAR VOLUME 99.7 fL (75.5-95.3); MONOCYTES # (AUTO) 0.7 K/uL (0.1-1.30); MONOCYTES % (AUTO) 12.7 % (0.0-11.0); NEUTROPHILS # (AUTO) 3.3 K/uL (1.8-8.9); NEUTROPHILS % (AUTO) 62.6 % (38.5-71.5); PLATELET COUNT (AUTO) 740 K/uL (179-408); RED BLOOD CELL COUNT(AUTO) 2.99 MIL/uL (3.63-4.92); RED CELL DISTRIBUTION WIDTH 14.2 % (12.3-17.7); WHITE BLOOD COUNT (AUTO) 5.3 K/uL (3.8-11.8)
[2023-07-10 09:21] LABS: DIFFERENTIAL COMMENT 1
[2023-07-10] MEDS: VANCOMYCIN IV 1,250 MG in IV DEXTROSE 5% 250 ML IV SCH (10:49)
[2023-07-10] MEDS: VITAMIN B COMPLEX 1 TABLET PO SCH (13:57)
[2023-07-10] MEDS: GABAPENTIN 300 MG CAPSULE PO SCH (16:26)
[2023-07-11 06:41] VITALS: BP 125/85; TEMP 98.1; O2SAT 94
[2023-07-11 07:20] LABS: BASOPHILS # (AUTO) 0.1 K/UL (0.0-0.2); BASOPHILS % (AUTO) 1.4 % (0.0-2.0); EOSINOPHILS # (AUTO) 0.2 K/uL (0.0-0.7); EOSINOPHILS % (AUTO) 3.2 % (0.0-7.0); HEMATOCRIT 30.2 % (31.2-41.9); HEMOGLOBIN 10.7 g/dL (10.9-14.3); LYMPHOCYTES # (AUTO) 0.7 K/uL (0.8-4.8); LYMPHOCYTES % (AUTO) 14.3 % (20.5-51.5); MEAN CORPUSCULAR HEMOGLOBIN 35.1 uug (24.7-32.8); MEAN CORPUSCULAR HGB CONC 35 g/dL (32.3-35.6); MEAN CORPUSCULAR VOLUME 99.5 fL (75.5-95.3); MONOCYTES # (AUTO) 0.7 K/uL (0.1-1.30); MONOCYTES % (AUTO) 14.5 % (0.0-11.0); NEUTROPHILS # (AUTO) 3.2 K/uL (1.8-8.9); NEUTROPHILS % (AUTO) 66.6 % (38.5-71.5); PLATELET COUNT (AUTO) 745 K/uL (179-408); RED BLOOD CELL COUNT(AUTO) 3.04 MIL/uL (3.63-4.92); RED CELL DISTRIBUTION WIDTH 14.3 % (12.3-17.7); WHITE BLOOD COUNT (AUTO) 4.9 K/uL (3.8-11.8)
[2023-07-11 07:21] LABS: DIFFERENTIAL COMMENT 1
[2023-07-11 07:34] LABS: CALCIUM 8.9 mg/dL (8.5-10.1); CREATININE 0.6 mg/dL (0.6-1.3); MAGNESIUM 1.9 mg/dL (1.8-2.4); PHOSPHOROUS 4.3 mg/dL (2.5-4.9); POTASSIUM 3.6 mmol/L (3.5-5.1)
[2023-07-11 11:22] VITALS: BP 119/69; TEMP 99; O2SAT 97
[2023-07-11 15:59] VITALS: BP 110/71; TEMP 98.5; O2SAT 98
[2023-07-11 20:00] VITALS: BP 124/64; TEMP 99.5; O2SAT 93
[2023-07-12 04:16] LABS: BASOPHILS # (AUTO) 0.1 K/UL (0.0-0.2); EOSINOPHILS # (AUTO) 0.2 K/uL (0.0-0.7); EOSINOPHILS % (AUTO) 4.1 % (0.0-7.0); HEMATOCRIT 27.4 % (31.2-41.9); HEMOGLOBIN 9.8 g/dL (10.9-14.3); LYMPHOCYTES # (AUTO) 0.8 K/uL (0.8-4.8); MEAN CORPUSCULAR HEMOGLOBIN 35.4 uug (24.7-32.8); MEAN CORPUSCULAR HGB CONC 36 g/dL (32.3-35.6); MEAN CORPUSCULAR VOLUME 99.3 fL (75.5-95.3); MONOCYTES # (AUTO) 0.8 K/uL (0.1-1.30); NEUTROPHILS # (AUTO) 3.2 K/uL (1.8-8.9); NEUTROPHILS % (AUTO) 64.2 % (38.5-71.5); PLATELET COUNT (AUTO) 629 K/uL (179-408); RED BLOOD CELL COUNT(AUTO) 2.76 MIL/uL (3.63-4.92)
[2023-07-12 04:29] LABS: DIFFERENTIAL COMMENT 1
[2023-07-12 04:30] LABS: LYMPHOCYTES % (AUTO) 17.8 % (20.5-51.5)
[2023-07-12 04:33] LABS: CREATININE 0.6 mg/dL (0.6-1.3); MAGNESIUM 1.8 mg/dL (1.8-2.4); PHOSPHOROUS 4.2 mg/dL (2.5-4.9); POTASSIUM 3.7 mmol/L (3.5-5.1); VANCOMYCIN,TROUGH 9.9 ug/mL (10.0-20.0)
[2023-07-12 06:00] VITALS: BP 117/76; TEMP 98.6; O2SAT 97
[2023-07-12 09:27] LABS: ALBUMIN 1.9 g/dL (3.4-5.0); BILIRUBIN,DIRECT 0.2 mg/dL (0.0-0.2); BILIRUBIN,TOTAL 0.4 mg/dL (0.2-1.0); TOTAL PROTEIN, SERUM 7.1 g/dL (6.4-8.2)
[2023-07-12 12:00] VITALS: BP 135/79; TEMP 97; O2SAT 99
[2023-07-12 15:15] LABS: C-REACTIVE PROTEIN 2.39 mg/dL (0.00-0.30)
[2023-07-12] MEDS: VANCOMYCIN IV 1,000 MG in IV DEXTROSE 5% 250 ML IV SCH (15:33)
[2023-07-12 16:00] VITALS: BP 128/81; TEMP 97.2; O2SAT 99
[2023-07-12 20:00] VITALS: BP 121/75; TEMP 98.5; O2SAT 95
[2023-07-13 04:00] VITALS: BP 120/70; TEMP 98.2; O2SAT 100
[2023-07-13 06:50] LABS: BASOPHILS # (AUTO) 0.1 K/UL (0.0-0.2); BASOPHILS % (AUTO) 1.3 % (0.0-2.0); EOSINOPHILS # (AUTO) 0.2 K/uL (0.0-0.7); EOSINOPHILS % (AUTO) 4.7 % (0.0-7.0); HEMATOCRIT 28.3 % (31.2-41.9); LYMPHOCYTES # (AUTO) 0.5 K/uL (0.8-4.8); LYMPHOCYTES % (AUTO) 10.6 % (20.5-51.5); MEAN CORPUSCULAR HEMOGLOBIN 34.6 uug (24.7-32.8); MEAN CORPUSCULAR HGB CONC 35 g/dL (32.3-35.6); MEAN CORPUSCULAR VOLUME 98.1 fL (75.5-95.3); MONOCYTES # (AUTO) 0.8 K/uL (0.1-1.30); MONOCYTES % (AUTO) 15.7 % (0.0-11.0); NEUTROPHILS # (AUTO) 3.3 K/uL (1.8-8.9); NEUTROPHILS % (AUTO) 67.7 % (38.5-71.5); PLATELET COUNT (AUTO) 592 K/uL (179-408); RED BLOOD CELL COUNT(AUTO) 2.88 MIL/uL (3.63-4.92); RED CELL DISTRIBUTION WIDTH 14.2 % (12.3-17.7); WHITE BLOOD COUNT (AUTO) 4.8 K/uL (3.8-11.8)
[2023-07-13 07:04] LABS: DIFFERENTIAL COMMENT 1
[2023-07-13] MEDS: VANCOMYCIN IV 1,000 MG in IV DEXTROSE 5% 250 ML IV SCH (11:36)
[2023-07-13 11:46] VITALS: BP 129/79; TEMP 99.9; O2SAT 99
[2023-07-13 12:50] LABS: BAND % (MANUAL) 5 % (0-10); BASOPHILS % (MANUAL) 1 % (0-2); EOSINOPHILS % (MANUAL) 2 % (0-8); LYMPHOCYTES % (MANUAL) 14 % (20-40); MONOCYTES % (MANUAL) 13 % (2-10); NEUTROPHILS % (MANUAL) 65 % (42-75)
[2023-07-13 12:51] LABS: ANISOCYTOSIS 1+; PLATELET ESTIMATE ADEQUATE
[2023-07-13 16:14] VITALS: BP 137/84; TEMP 99.1; O2SAT 95
[2023-07-13] MEDS: GABAPENTIN 400 MG CAPSULE PO SCH (17:31)
[2023-07-13 20:37] VITALS: BP 106/64; TEMP 99.1; O2SAT 95
[2023-07-14 05:13] VITALS: BP 110/63; TEMP 98.8; O2SAT 97
[2023-07-14 06:11] VITALS: BP 110/63; TEMP 98.8; O2SAT 97
[2023-07-14] MEDS: VANCOMYCIN IV 1,000 MG in IV DEXTROSE 5% 250 ML IV SCH (09:19)
[2023-07-14 11:22] VITALS: BP 107/71; TEMP 99.5; O2SAT 96
[2023-07-14] MEDS ORDERED: MORPHINE SULFATE 2 MG/1 ML DISP.SYRIN IV PRN (12:30)
[2023-07-14 15:59] VITALS: BP 104/65; TEMP 99.2; O2SAT 93
[2023-07-14 20:00] VITALS: BP 122/80; TEMP 102.9; O2SAT 99
[2023-07-14] MEDS: METRONIDAZOLE 500 MG/NS 100ML 500 MG in PREMIXED 1 EACH IV SCH (22:53)
[2023-07-15] MEDS: MORPHINE SULFATE 4 MG/1 ML DISP.SYRIN IV PRN (00:32)
[2023-07-15 06:00] VITALS: BP 107/69; TEMP 100.7; O2SAT 98
[2023-07-15 08:14] LABS: BASOPHILS % (AUTO) 1.6 % (0.0-2.0); EOSINOPHILS # (AUTO) 0.2 K/uL (0.0-0.7); EOSINOPHILS % (AUTO) 7.5 % (0.0-7.0); HEMATOCRIT 31.9 % (31.2-41.9); HEMOGLOBIN 11.1 g/dL (10.9-14.3); LYMPHOCYTES # (AUTO) 0.5 K/uL (0.8-4.8); LYMPHOCYTES % (AUTO) 25.5 % (20.5-51.5); MEAN CORPUSCULAR HEMOGLOBIN 34.3 uug (24.7-32.8); MEAN CORPUSCULAR HGB CONC 35 g/dL (32.3-35.6); MEAN CORPUSCULAR VOLUME 98.3 fL (75.5-95.3); MONOCYTES # (AUTO) 0.3 K/uL (0.1-1.30); MONOCYTES % (AUTO) 12.2 % (0.0-11.0); NEUTROPHILS # (AUTO) 1.1 K/uL (1.8-8.9); NEUTROPHILS % (AUTO) 53.2 % (38.5-71.5); PLATELET COUNT (AUTO) 371 K/uL (179-408); RED BLOOD CELL COUNT(AUTO) 3.24 MIL/uL (3.63-4.92); RED CELL DISTRIBUTION WIDTH 14.2 % (12.3-17.7); WHITE BLOOD COUNT (AUTO) 2.1 K/uL (3.8-11.8)
[2023-07-15 09:03] LABS: DIFFERENTIAL COMMENT 1
[2023-07-15 11:44] VITALS: BP 105/68; TEMP 99.1; O2SAT 96
[2023-07-15 12:11] LABS: CALCIUM 8.8 mg/dL (8.5-10.1); CREATININE 0.7 mg/dL (0.6-1.3); MAGNESIUM 1.9 mg/dL (1.8-2.4); PHOSPHOROUS 3.2 mg/dL (2.5-4.9); POTASSIUM 3.5 mmol/L (3.5-5.1); VANCOMYCIN,TROUGH 13.6 ug/mL (10.0-20.0)
[2023-07-15 12:52] LABS: *BILIRUBIN,URIN NEGATIVE (NEGATIVE); *BLOOD, URINE NEGATIVE (NEGATIVE); *CLARITY,URINE CLEAR (CLEAR); *COLOR,URINE YELLOW (YELLOW); *KETONES,URINE NEGATIVE (NEGATIVE); *PROTEIN,URINE TRACE (NEGATIVE); *UROBILINOGEN,URINE 0.2 E.U./dl (NORMAL); LEUKOCYTE ESTERASE ,URINE NEGATIVE (NEGATIVE); NITRITE, URINE NEGATIVE (NEGATIVE); PH,URINE 5.5 (5.0-8.0); UGLUCOSE NEGATIVE (NEGATIVE)
[2023-07-15 16:11] VITALS: BP 109/71; TEMP 99.1; O2SAT 98
[2023-07-15 20:00] VITALS: BP 117/67; TEMP 100.8; O2SAT 98
[2023-07-16] MEDS: ACETAMINOPHEN 325 MG TABLET PO PRN (02:58)
[2023-07-16] MEDS: MORPHINE SULFATE 2 MG/1 ML DISP.SYRIN IV PRN (03:04)
[2023-07-16 05:57] VITALS: BP 103/60; TEMP 99.6; O2SAT 92
[2023-07-16 07:59] LABS: BASOPHILS % (AUTO) 1.5 % (0.0-2.0); EOSINOPHILS # (AUTO) 0.3 K/uL (0.0-0.7); EOSINOPHILS % (AUTO) 9.5 % (0.0-7.0); HEMATOCRIT 29.1 % (31.2-41.9); HEMOGLOBIN 10.3 g/dL (10.9-14.3); LYMPHOCYTES # (AUTO) 0.7 K/uL (0.8-4.8); LYMPHOCYTES % (AUTO) 26.1 % (20.5-51.5); MEAN CORPUSCULAR HEMOGLOBIN 34.4 uug (24.7-32.8); MEAN CORPUSCULAR HGB CONC 35 g/dL (32.3-35.6); MEAN CORPUSCULAR VOLUME 96.9 fL (75.5-95.3); MONOCYTES # (AUTO) 0.3 K/uL (0.1-1.30); MONOCYTES % (AUTO) 10.4 % (0.0-11.0); NEUTROPHILS # (AUTO) 1.4 K/uL (1.8-8.9); NEUTROPHILS % (AUTO) 52.5 % (38.5-71.5); PLATELET COUNT (AUTO) 274 K/uL (179-408); RED CELL DISTRIBUTION WIDTH 14.5 % (12.3-17.7); WHITE BLOOD COUNT (AUTO) 2.7 K/uL (3.8-11.8)
[2023-07-16 08:35] LABS: ALBUMIN 2.2 g/dL (3.4-5.0); BILIRUBIN,TOTAL 0.4 mg/dL (0.2-1.0); CALCIUM 8.8 mg/dL (8.5-10.1); CREATININE 0.7 mg/dL (0.6-1.3); MAGNESIUM 1.8 mg/dL (1.8-2.4); PHOSPHOROUS 3.7 mg/dL (2.5-4.9); POTASSIUM 3.5 mmol/L (3.5-5.1); TOTAL PROTEIN, SERUM 7.6 g/dL (6.4-8.2)
[2023-07-16 09:33] VITALS: BP 106/64; TEMP 98.2; O2SAT 100
[2023-07-16] MEDS: ALPRAZOLAM 0.5 MG TABLET PO PRN (10:26)
[2023-07-16 12:08] LABS: ANISOCYTOSIS 1+; EOSINOPHILS % (MANUAL) 6 % (0-8); LYMPHOCYTES % (MANUAL) 26 % (20-40); MONOCYTES % (MANUAL) 5 % (2-10); NEUTROPHILS % (MANUAL) 63 % (42-75); PLATELET ESTIMATE ADEQUATE
[2023-07-16] MEDS: VANCOMYCIN IV 1,250 MG in IV DEXTROSE 5% 250 ML IV SCH (17:06)
[2023-07-16 19:40] VITALS: BP 118/68; TEMP 100.2; O2SAT 99
[2023-07-17 05:18] VITALS: BP 92/49; TEMP 98.6; O2SAT 100
[2023-07-17 07:16] LABS: BASOPHILS % (AUTO) 1.5 % (0.0-2.0); EOSINOPHILS # (AUTO) 0.3 K/uL (0.0-0.7); EOSINOPHILS % (AUTO) 12.5 % (0.0-7.0); HEMOGLOBIN 10.8 g/dL (10.9-14.3); LYMPHOCYTES # (AUTO) 0.8 K/uL (0.8-4.8); LYMPHOCYTES % (AUTO) 32.8 % (20.5-51.5); MEAN CORPUSCULAR HEMOGLOBIN 33.8 uug (24.7-32.8); MEAN CORPUSCULAR HGB CONC 35 g/dL (32.3-35.6); MEAN CORPUSCULAR VOLUME 96.8 fL (75.5-95.3); MONOCYTES # (AUTO) 0.1 K/uL (0.1-1.30); MONOCYTES % (AUTO) 5.8 % (0.0-11.0); NEUTROPHILS # (AUTO) 1.2 K/uL (1.8-8.9); NEUTROPHILS % (AUTO) 47.4 % (38.5-71.5); PLATELET COUNT (AUTO) 230 K/uL (179-408); RED CELL DISTRIBUTION WIDTH 14.8 % (12.3-17.7); WHITE BLOOD COUNT (AUTO) 2.5 K/uL (3.8-11.8)
[2023-07-17] MEDS ORDERED: IOHEXOL 300MG/ML 100 ML INFUS..BTL ONE (09:26)
[2023-07-17] MEDS ORDERED: SWABABLE VALVE TRANSFER SET EA MC ONE (09:26)
[2023-07-17] MEDS ORDERED: IV NORMAL SALINE 250 ML IV ONE (09:28)
[2023-07-17 11:35] VITALS: BP 98/45; TEMP 100.6; O2SAT 96
[2023-07-17 12:00] VITALS: O2SAT 98
[2023-07-17 15:48] VITALS: BP 104/63; TEMP 99.6; O2SAT 97
[2023-07-17 20:00] VITALS: BP 99/54; TEMP 99.1; O2SAT 96
[2023-07-18 06:32] VITALS: BP 123/72; TEMP 99.9; O2SAT 99
[2023-07-18 07:16] LABS: BILIRUBIN,TOTAL 0.4 mg/dL (0.2-1.0); CALCIUM 8.3 mg/dL (8.5-10.1); CREATININE 0.6 mg/dL (0.6-1.3); MAGNESIUM 1.9 mg/dL (1.8-2.4); POTASSIUM 3.5 mmol/L (3.5-5.1); TOTAL PROTEIN, SERUM 6.9 g/dL (6.4-8.2)
[2023-07-18 07:31] LABS: BASOPHILS % (AUTO) 1.3 % (0.0-2.0); EOSINOPHILS # (AUTO) 0.4 K/uL (0.0-0.7); EOSINOPHILS % (AUTO) 19.6 % (0.0-7.0); HEMATOCRIT 28.3 % (31.2-41.9); HEMOGLOBIN 9.7 g/dL (10.9-14.3); LYMPHOCYTES # (AUTO) 0.5 K/uL (0.8-4.8); LYMPHOCYTES % (AUTO) 29.8 % (20.5-51.5); MEAN CORPUSCULAR HEMOGLOBIN 33.2 uug (24.7-32.8); MEAN CORPUSCULAR HGB CONC 34 g/dL (32.3-35.6); MEAN CORPUSCULAR VOLUME 96.7 fL (75.5-95.3); MONOCYTES # (AUTO) 0.1 K/uL (0.1-1.30); NEUTROPHILS # (AUTO) 0.7 K/uL (1.8-8.9); NEUTROPHILS % (AUTO) 41.3 % (38.5-71.5); PLATELET COUNT (AUTO) 188 K/uL (179-408); RED BLOOD CELL COUNT(AUTO) 2.92 MIL/uL (3.63-4.92); RED CELL DISTRIBUTION WIDTH 14.6 % (12.3-17.7)
[2023-07-18 08:37] LABS: WHITE BLOOD COUNT (AUTO) 1.8 K/uL (3.8-11.8)
[2023-07-18 10:57] LABS: BAND % (MANUAL) 3 % (0-10); EOSINOPHILS % (MANUAL) 17 % (0-8); LYMPHOCYTES % (MANUAL) 26 % (20-40); MONOCYTES % (MANUAL) 11 % (2-10); NEUTROPHILS % (MANUAL) 43 % (42-75)
[2023-07-18 10:58] LABS: PLATELET ESTIMATE SLIGHT DECREASED
[2023-07-18] MEDS ORDERED: FILGRASTIM 480 MCG/1.6 ML VIAL SUBCUT SCH (11:15)
[2023-07-18 11:34] VITALS: BP 104/64; TEMP 98.2; O2SAT 94
[2023-07-18] MEDS ORDERED: FILGRASTIM 300 MCG/ML VIAL SUBCUT SCH (12:00)
[2023-07-18] MEDS ORDERED: TBO-FILGRASTIM 300 MCG/0.5 ML SYRINGE SQ SCH (12:00)
[2023-07-18] MEDS: TBO-FILGRASTIM 480 MCG/0.8 ML SYRINGE SQ SCH (12:16)
[2023-07-18 14:41] VITALS: O2SAT 95
[2023-07-18 15:43] VITALS: BP 122/78; TEMP 98.5; O2SAT 100
[2023-07-18 19:58] VITALS: O2SAT 97
[2023-07-18 20:20] VITALS: BP 127/71; TEMP 100.9; O2SAT 99
[2023-07-18] MEDS: MEROPENEM 1 G in IV NORMAL SALINE 100 ML IV SCH (21:44)
[2023-07-18] MEDS ORDERED: MEROPENEM 1,000 MG in IV NORMAL SALINE 50 ML IV SCH (22:00)
[2023-07-19 01:00] VITALS: TEMP 98.7; O2SAT 98
[2023-07-19 06:00] VITALS: BP 111/57; TEMP 98.2; O2SAT 98
[2023-07-19 07:26] LABS: BASOPHILS % (AUTO) 0.4 % (0.0-2.0); EOSINOPHILS # (AUTO) 0.6 K/uL (0.0-0.7); EOSINOPHILS % (AUTO) 4.9 % (0.0-7.0); HEMATOCRIT 23.5 % (31.2-41.9); HEMOGLOBIN 8.3 g/dL (10.9-14.3); LYMPHOCYTES # (AUTO) 0.8 K/uL (0.8-4.8); LYMPHOCYTES % (AUTO) 6.5 % (20.5-51.5); MEAN CORPUSCULAR HEMOGLOBIN 33.6 uug (24.7-32.8); MEAN CORPUSCULAR HGB CONC 35 g/dL (32.3-35.6); MONOCYTES # (AUTO) 0.4 K/uL (0.1-1.30); MONOCYTES % (AUTO) 2.9 % (0.0-11.0); NEUTROPHILS % (AUTO) 85.3 % (38.5-71.5); PLATELET COUNT (AUTO) 207 K/uL (179-408); RED CELL DISTRIBUTION WIDTH 15.2 % (12.3-17.7); WHITE BLOOD COUNT (AUTO) 12.8 K/uL (3.8-11.8)
[2023-07-19 07:43] LABS: DIFFERENTIAL COMMENT 1; RED BLOOD CELL COUNT(AUTO) 2.47 MIL/uL (3.63-4.92)
[2023-07-19 07:54] LABS: CALCIUM 8.4 mg/dL (8.5-10.1); CREATININE 0.6 mg/dL (0.6-1.3); MAGNESIUM 1.9 mg/dL (1.8-2.4); PHOSPHOROUS 2.9 mg/dL (2.5-4.9)
[2023-07-19 08:28] LABS: POTASSIUM 2.8 mmol/L (3.5-5.1)
[2023-07-19] MEDS: POTASSIUM CHLORIDE 10 MEQ TAB.PRT.SR PO ONE (08:44)
[2023-07-19] MEDS ORDERED: POTASSIUM CHLORIDE 10 MEQ TAB.PRT.SR PO SCH (09:30)
[2023-07-19 10:56] VITALS: BP 113/70; TEMP 100.8; O2SAT 98
[2023-07-19 11:40] VITALS: O2SAT 96
[2023-07-19 15:35] VITALS: BP 78/45; TEMP 98.7; O2SAT 96
[2023-07-19] MEDS: IV NORMAL SALINE 500 ML IV ONE (15:42)
[2023-07-19] MEDS: HYDROCODONE/APAP 5-325MG TABLET PO PRN (17:46)
[2023-07-19 20:00] VITALS: BP 100/58; TEMP 98.7; O2SAT 92
[2023-07-20 06:00] VITALS: BP 108/55; TEMP 98.1; O2SAT 96
[2023-07-20 07:16] LABS: BASOPHILS % (AUTO) 0.2 % (0.0-2.0); EOSINOPHILS # (AUTO) 0.4 K/uL (0.0-0.7); HEMATOCRIT 26.5 % (31.2-41.9); HEMOGLOBIN 9.4 g/dL (10.9-14.3); LYMPHOCYTES # (AUTO) 0.9 K/uL (0.8-4.8); LYMPHOCYTES % (AUTO) 11.9 % (20.5-51.5); MEAN CORPUSCULAR HEMOGLOBIN 33.9 uug (24.7-32.8); MEAN CORPUSCULAR HGB CONC 36 g/dL (32.3-35.6); MEAN CORPUSCULAR VOLUME 95.3 fL (75.5-95.3); MONOCYTES # (AUTO) 0.3 K/uL (0.1-1.30); MONOCYTES % (AUTO) 3.5 % (0.0-11.0); NEUTROPHILS # (AUTO) 5.7 K/uL (1.8-8.9); NEUTROPHILS % (AUTO) 78.4 % (38.5-71.5); PLATELET COUNT (AUTO) 225 K/uL (179-408); RED BLOOD CELL COUNT(AUTO) 2.78 MIL/uL (3.63-4.92); RED CELL DISTRIBUTION WIDTH 15.4 % (12.3-17.7); WHITE BLOOD COUNT (AUTO) 7.3 K/uL (3.8-11.8)
[2023-07-20 07:31] LABS: CALCIUM 8.3 mg/dL (8.5-10.1); CREATININE 0.7 mg/dL (0.6-1.3); MAGNESIUM 1.9 mg/dL (1.8-2.4); PHOSPHOROUS 2.6 mg/dL (2.5-4.9); POTASSIUM 3.6 mmol/L (3.5-5.1)
[2023-07-20 07:44] LABS: DIFFERENTIAL COMMENT 1
[2023-07-20 11:29] VITALS: BP 103/62; TEMP 98.3; O2SAT 98
[2023-07-20] MEDS: VANCOMYCIN IV 1,250 MG in IV DEXTROSE 5% 250 ML IV SCH (13:35)
[2023-07-20 14:00] VITALS: O2SAT 96
[2023-07-20 15:15] VITALS: BP 102/63; TEMP 98.2; O2SAT 99
[2023-07-20 20:00] VITALS: BP 108/72; TEMP 98; O2SAT 99
[2023-07-21 01:32] VITALS: O2SAT 96
[2023-07-21 06:00] VITALS: BP 118/79; TEMP 99; O2SAT 93
[2023-07-21 10:19] LABS: BASOPHILS % (AUTO) 0.6 % (0.0-2.0); DIFFERENTIAL COMMENT 0; EOSINOPHILS # (AUTO) 0.6 K/uL (0.0-0.7); EOSINOPHILS % (AUTO) 13.1 % (0.0-7.0); HEMATOCRIT 25.4 % (31.2-41.9); HEMOGLOBIN 8.8 g/dL (10.9-14.3); LYMPHOCYTES # (AUTO) 0.6 K/uL (0.8-4.8); LYMPHOCYTES % (AUTO) 13.7 % (20.5-51.5); MEAN CORPUSCULAR HEMOGLOBIN 33.1 uug (24.7-32.8); MEAN CORPUSCULAR HGB CONC 35 g/dL (32.3-35.6); MEAN CORPUSCULAR VOLUME 95.4 fL (75.5-95.3); MONOCYTES # (AUTO) 0.3 K/uL (0.1-1.30); MONOCYTES % (AUTO) 6.4 % (0.0-11.0); NEUTROPHILS # (AUTO) 2.9 K/uL (1.8-8.9); NEUTROPHILS % (AUTO) 66.2 % (38.5-71.5); PLATELET COUNT (AUTO) 264 K/uL (179-408); RED BLOOD CELL COUNT(AUTO) 2.66 MIL/uL (3.63-4.92); RED CELL DISTRIBUTION WIDTH 15.1 % (12.3-17.7); WHITE BLOOD COUNT (AUTO) 4.4 K/uL (3.8-11.8)
[2023-07-21 10:29] LABS: CALCIUM 7.9 mg/dL (8.5-10.1); CREATININE 0.7 mg/dL (0.6-1.3); MAGNESIUM 1.6 mg/dL (1.8-2.4); PHOSPHOROUS 2.4 mg/dL (2.5-4.9); POTASSIUM 3.6 mmol/L (3.5-5.1)
[2023-07-21 11:51] VITALS: BP 113/81; TEMP 100; O2SAT 97
[2023-07-21] MEDS ORDERED: MORPHINE SULFATE 2 MG/1 ML DISP.SYRIN IV PRN (14:45)
[2023-07-21] MEDS ORDERED: KETOROLAC TROMETHAMINE 30 MG INJ IVP PRN (15:15)
[2023-07-21 16:15] VITALS: BP 100/63; TEMP 100; O2SAT 97
[2023-07-21] MEDS: NEUTRA PHOS PACKET PO ONE (16:54)
[2023-07-21 20:00] VITALS: BP 111/65; TEMP 100; O2SAT 98
[2023-07-22] MEDS: HYDROCODONE/APAP 5-325MG TABLET PO PRN (02:54)
[2023-07-22 07:15] LABS: BASOPHILS % (AUTO) 0.5 % (0.0-2.0); EOSINOPHILS # (AUTO) 0.4 K/uL (0.0-0.7); EOSINOPHILS % (AUTO) 14.5 % (0.0-7.0); HEMATOCRIT 26.5 % (31.2-41.9); HEMOGLOBIN 9.3 g/dL (10.9-14.3); LYMPHOCYTES # (AUTO) 0.5 K/uL (0.8-4.8); LYMPHOCYTES % (AUTO) 19.7 % (20.5-51.5); MEAN CORPUSCULAR HEMOGLOBIN 33.2 uug (24.7-32.8); MEAN CORPUSCULAR HGB CONC 35 g/dL (32.3-35.6); MEAN CORPUSCULAR VOLUME 94.5 fL (75.5-95.3); MONOCYTES # (AUTO) 0.3 K/uL (0.1-1.30); MONOCYTES % (AUTO) 11.6 % (0.0-11.0); NEUTROPHILS # (AUTO) 1.3 K/uL (1.8-8.9); NEUTROPHILS % (AUTO) 53.7 % (38.5-71.5); PLATELET COUNT (AUTO) 283 K/uL (179-408); RED CELL DISTRIBUTION WIDTH 15.8 % (12.3-17.7); WHITE BLOOD COUNT (AUTO) 2.5 K/uL (3.8-11.8)
[2023-07-22 07:23] LABS: DIFFERENTIAL COMMENT 1
[2023-07-22 07:29] LABS: CREATININE 0.7 mg/dL (0.6-1.3); MAGNESIUM 1.8 mg/dL (1.8-2.4); PHOSPHOROUS 3.8 mg/dL (2.5-4.9); POTASSIUM 2.9 mmol/L (3.5-5.1)
[2023-07-22 10:52] LABS: *BILIRUBIN,URIN NEGATIVE (NEGATIVE); *CLARITY,URINE CLEAR (CLEAR); *COLOR,URINE LIGHT YELLOW (YELLOW); *KETONES,URINE NEGATIVE (NEGATIVE); *PROTEIN,URINE 1+ (NEGATIVE); *UROBILINOGEN,URINE 0.2 E.U./dl (NORMAL); LEUKOCYTE ESTERASE ,URINE NEGATIVE (NEGATIVE); NITRITE, URINE NEGATIVE (NEGATIVE); PH,URINE 6.5 (5.0-8.0); UGLUCOSE NEGATIVE (NEGATIVE)
[2023-07-22 10:57] LABS: *BLOOD, URINE TRACE (NEGATIVE)
[2023-07-22 11:29] VITALS: BP 93/49; TEMP 102.8; O2SAT 96
[2023-07-22 11:46] LABS: BACTERIA,URINE RARE /HPF (NONE SEEN); RBC,URINE 0-3 /HPF (0-3); SQUAMOUS EPITHELIAL CELL,UR FEW /HPF (NONE SEEN); URINE AMORPHOUS URATE FEW /HPF; WBC,URINE 0-3 /HPF (0-3)
[2023-07-22 11:48] LABS: URIC ACID CRYSTALS,URINE MODERATE /HPF (NONE SEEN)
[2023-07-22 11:49] VITALS: O2SAT 96
[2023-07-22] MEDS: IV NORMAL SALINE 500 ML IV ONE (11:54)
[2023-07-22] MEDS: POTASSIUM CHLORIDE 20 MEQ TAB.PRT.SR PO SCH (13:24)
[2023-07-22] MEDS ORDERED: AMMONIUM LACTATE 12% LOTION 225 GM BOTTLE TP PRN (13:30)
[2023-07-22] MEDS: AMMONIUM LACTATE 12% LOTION 225 GM BOTTLE TP PRN (15:46)
[2023-07-22 16:38] VITALS: BP 110/69; TEMP 102.5; O2SAT 97
[2023-07-22] MEDS: VANCOMYCIN IV 1,250 MG in IV DEXTROSE 5% 250 ML IV SCH (17:48)
[2023-07-22 20:06] VITALS: BP 97/58; TEMP 102.2; O2SAT 95
[2023-07-22 20:36] VITALS: O2SAT 95
[2023-07-23 07:45] LABS: BASOPHILS % (AUTO) 0.5 % (0.0-2.0); EOSINOPHILS # (AUTO) 0.5 K/uL (0.0-0.7); EOSINOPHILS % (AUTO) 15.7 % (0.0-7.0); HEMATOCRIT 28.1 % (31.2-41.9); HEMOGLOBIN 9.7 g/dL (10.9-14.3); LYMPHOCYTES # (AUTO) 0.6 K/uL (0.8-4.8); LYMPHOCYTES % (AUTO) 20.7 % (20.5-51.5); MEAN CORPUSCULAR HGB CONC 35 g/dL (32.3-35.6); MEAN CORPUSCULAR VOLUME 95.6 fL (75.5-95.3); MONOCYTES # (AUTO) 0.1 K/uL (0.1-1.30); MONOCYTES % (AUTO) 4.7 % (0.0-11.0); NEUTROPHILS # (AUTO) 1.7 K/uL (1.8-8.9); NEUTROPHILS % (AUTO) 58.4 % (38.5-71.5); PLATELET COUNT (AUTO) 317 K/uL (179-408); RED BLOOD CELL COUNT(AUTO) 2.94 MIL/uL (3.63-4.92)
[2023-07-23 08:05] LABS: DIFFERENTIAL COMMENT 1
[2023-07-23 08:54] LABS: CALCIUM 8.3 mg/dL (8.5-10.1); CREATININE 0.8 mg/dL (0.6-1.3); MAGNESIUM 1.9 mg/dL (1.8-2.4); PHOSPHOROUS 2.4 mg/dL (2.5-4.9)
[2023-07-23] MEDS: MICAFUNGIN SODIUM 100 MG in IV NORMAL SALINE 100 ML IV SCH ×2 (09:10)
[2023-07-23 11:23] VITALS: BP 108/63; TEMP 99.8; O2SAT 95
[2023-07-23 15:00] VITALS: O2SAT 97
[2023-07-23 16:49] VITALS: BP 105/75; TEMP 98.7; O2SAT 99
[2023-07-23] MEDS: NEUTRA PHOS PACKET PO ONE (17:58)
[2023-07-23 19:50] VITALS: BP 122/81; TEMP 100.4; O2SAT 95
[2023-07-23 20:48] VITALS: O2SAT 97
[2023-07-24] MEDS: HYDROCODONE/APAP 10-325 MG TABLET PO PRN (00:49)
[2023-07-24 05:48] LABS: BASOPHILS % (AUTO) 0.6 % (0.0-2.0); EOSINOPHILS # (AUTO) 0.4 K/uL (0.0-0.7); EOSINOPHILS % (AUTO) 16.4 % (0.0-7.0); HEMATOCRIT 30.1 % (31.2-41.9); HEMOGLOBIN 10.3 g/dL (10.9-14.3); LYMPHOCYTES # (AUTO) 0.5 K/uL (0.8-4.8); LYMPHOCYTES % (AUTO) 19.3 % (20.5-51.5); MEAN CORPUSCULAR HEMOGLOBIN 32.6 uug (24.7-32.8); MEAN CORPUSCULAR HGB CONC 34 g/dL (32.3-35.6); MONOCYTES # (AUTO) 0.1 K/uL (0.1-1.30); MONOCYTES % (AUTO) 6.3 % (0.0-11.0); NEUTROPHILS # (AUTO) 1.4 K/uL (1.8-8.9); NEUTROPHILS % (AUTO) 57.4 % (38.5-71.5); PLATELET COUNT (AUTO) 334 K/uL (179-408); RED BLOOD CELL COUNT(AUTO) 3.17 MIL/uL (3.63-4.92); WHITE BLOOD COUNT (AUTO) 2.4 K/uL (3.8-11.8)
[2023-07-24 06:36] VITALS: BP 112/75; TEMP 98.7; O2SAT 97
[2023-07-24 07:00] LABS: CALCIUM 8.2 mg/dL (8.5-10.1); CREATININE 0.7 mg/dL (0.6-1.3); DIFFERENTIAL COMMENT 1; MAGNESIUM 1.8 mg/dL (1.8-2.4); PHOSPHOROUS 2.7 mg/dL (2.5-4.9); POTASSIUM 3.8 mmol/L (3.5-5.1)
[2023-07-24 11:44] VITALS: BP 100/57; TEMP 98.3; O2SAT 96
[2023-07-24] MEDS: VANCOMYCIN IV 1,250 MG in IV DEXTROSE 5% 250 ML IV SCH (12:38)
[2023-07-24 13:44] VITALS: O2SAT 96
[2023-07-24] MEDS: ALPRAZOLAM 0.25 MG TABLET PO PRN (16:13)
[2023-07-24 16:30] VITALS: BP 131/86; TEMP 98.5; O2SAT 94
[2023-07-24 19:20] VITALS: BP 121/71; TEMP 101.2; O2SAT 94
[2023-07-25] VITALS (7 sets, daily range): BP systolic 92–131; BP diastolic 57–77; TEMP 97.8–100; O2SAT 94–97
[2023-07-25] MEDS ORDERED: MICAFUNGIN SODIUM 100 MG in IV NORMAL SALINE 100 ML IV SCH (09:00)
[2023-07-25] MEDS: diphenhydrAMINE 50 MG/1 ML VIAL IV PRN (10:25)
[2023-07-25 14:13] LABS: BASOPHILS % (AUTO) 0.8 % (0.0-2.0); EOSINOPHILS # (AUTO) 0.4 K/uL (0.0-0.7); EOSINOPHILS % (AUTO) 10.7 % (0.0-7.0); HEMATOCRIT 28.5 % (31.2-41.9); HEMOGLOBIN 9.9 g/dL (10.9-14.3); LYMPHOCYTES # (AUTO) 0.3 K/uL (0.8-4.8); LYMPHOCYTES % (AUTO) 10.1 % (20.5-51.5); MEAN CORPUSCULAR HEMOGLOBIN 32.7 uug (24.7-32.8); MEAN CORPUSCULAR HGB CONC 35 g/dL (32.3-35.6); MONOCYTES # (AUTO) 0.1 K/uL (0.1-1.30); NEUTROPHILS # (AUTO) 2.6 K/uL (1.8-8.9); NEUTROPHILS % (AUTO) 76.4 % (38.5-71.5); PLATELET COUNT (AUTO) 370 K/uL (179-408); RED BLOOD CELL COUNT(AUTO) 3.03 MIL/uL (3.63-4.92); RED CELL DISTRIBUTION WIDTH 16.6 % (12.3-17.7); WHITE BLOOD COUNT (AUTO) 3.4 K/uL (3.8-11.8)
[2023-07-25] MEDS ORDERED: GADOTERATE MEGLUMINE 10 MMOL/20 ML VIAL IV ONE (14:24)
[2023-07-25 14:31] LABS: CALCIUM 8.3 mg/dL (8.5-10.1); CREATININE 0.7 mg/dL (0.6-1.3); MAGNESIUM 1.9 mg/dL (1.8-2.4); PHOSPHOROUS 2.9 mg/dL (2.5-4.9); POTASSIUM 3.2 mmol/L (3.5-5.1)
[2023-07-25 14:39] LABS: DIFFERENTIAL COMMENT 1
[2023-07-26 06:00] VITALS: BP 95/56; TEMP 97.8; O2SAT 94
[2023-07-26 11:39] VITALS: BP 101/62; TEMP 98.6; O2SAT 95
[2023-07-26] MEDS: methylPREDNISolone SOD SUCC 40 MG/ML VIAL IV SCH (12:02)
[2023-07-26 12:50] LABS: BASOPHILS # (AUTO) 0.1 K/UL (0.0-0.2); BASOPHILS % (AUTO) 1.1 % (0.0-2.0); EOSINOPHILS # (AUTO) 0.4 K/uL (0.0-0.7); EOSINOPHILS % (AUTO) 7.9 % (0.0-7.0); HEMOGLOBIN 9.6 g/dL (10.9-14.3); LYMPHOCYTES # (AUTO) 0.4 K/uL (0.8-4.8); LYMPHOCYTES % (AUTO) 7.1 % (20.5-51.5); MEAN CORPUSCULAR HEMOGLOBIN 31.8 uug (24.7-32.8); MEAN CORPUSCULAR HGB CONC 34 g/dL (32.3-35.6); MEAN CORPUSCULAR VOLUME 93.2 fL (75.5-95.3); MONOCYTES # (AUTO) 0.1 K/uL (0.1-1.30); MONOCYTES % (AUTO) 2.3 % (0.0-11.0); NEUTROPHILS # (AUTO) 4.1 K/uL (1.8-8.9); NEUTROPHILS % (AUTO) 81.6 % (38.5-71.5); PLATELET COUNT (AUTO) 351 K/uL (179-408); RED CELL DISTRIBUTION WIDTH 16.7 % (12.3-17.7); WHITE BLOOD COUNT (AUTO) 5.1 K/uL (3.8-11.8)
[2023-07-26 13:08] LABS: DIFFERENTIAL COMMENT 1
[2023-07-26 16:18] VITALS: O2SAT 96
[2023-07-26] MEDS ORDERED: TRIAMCINOLONE ACET 0.1% CREAM 15 GM TUBE TOP PRN (17:45)
[2023-07-26 20:00] VITALS: BP 108/63; TEMP 98.3; O2SAT 95
[2023-07-26 20:45] VITALS: O2SAT 96
[2023-07-27 06:00] VITALS: BP 129/90; TEMP 97.6; O2SAT 93
[2023-07-27 07:05] LABS: BASOPHILS % (AUTO) 1.5 % (0.0-2.0); EOSINOPHILS % (AUTO) 1.1 % (0.0-7.0); HEMATOCRIT 32.6 % (31.2-41.9); HEMOGLOBIN 11.1 g/dL (10.9-14.3); LYMPHOCYTES # (AUTO) 0.6 K/uL (0.8-4.8); LYMPHOCYTES % (AUTO) 23.3 % (20.5-51.5); MEAN CORPUSCULAR HGB CONC 34 g/dL (32.3-35.6); MEAN CORPUSCULAR VOLUME 93.6 fL (75.5-95.3); MONOCYTES # (AUTO) 0.1 K/uL (0.1-1.30); MONOCYTES % (AUTO) 2.3 % (0.0-11.0); NEUTROPHILS % (AUTO) 71.8 % (38.5-71.5); PLATELET COUNT (AUTO) 376 K/uL (179-408); RED BLOOD CELL COUNT(AUTO) 3.48 MIL/uL (3.63-4.92); RED CELL DISTRIBUTION WIDTH 16.6 % (12.3-17.7); WHITE BLOOD COUNT (AUTO) 2.7 K/uL (3.8-11.8)
[2023-07-27 07:07] LABS: BILIRUBIN,TOTAL 0.5 mg/dL (0.2-1.0); CALCIUM 8.7 mg/dL (8.5-10.1); CREATININE 0.6 mg/dL (0.6-1.3); MAGNESIUM 2.2 mg/dL (1.8-2.4); PHOSPHOROUS 3.6 mg/dL (2.5-4.9); POTASSIUM 3.7 mmol/L (3.5-5.1); TOTAL PROTEIN, SERUM 6.6 g/dL (6.4-8.2)
[2023-07-27 07:11] LABS: DIFFERENTIAL COMMENT 1
[2023-07-27] MEDS ORDERED: PROPOFOL 200 MG/20 ML BOTTLE ONE (08:09)
[2023-07-27 09:10] VITALS: BP 125/82; TEMP 97.5; O2SAT 95
[2023-07-27 13:53] VITALS: O2SAT 97
[2023-07-27] MEDS ORDERED: NALOXONE HCL 0.4 MG/ML AMPUL IV PRN (14:15)
[2023-07-27] MEDS: OXYCODONE HCL 10 MG TAB.SR.12H PO SCH (15:11)
[2023-07-27 16:00] VITALS: BP 125/81; TEMP 98; O2SAT 93
[2023-07-27] MEDS: TRIAMCINOLONE ACET 0.1% CREAM 15 GM TUBE TOP SCH (17:14)
[2023-07-27 19:30] VITALS: BP 120/82; TEMP 97.8; O2SAT 97
[2023-07-27 20:55] VITALS: O2SAT 96
[2023-07-28 05:59] VITALS: BP 136/89; TEMP 97.4; O2SAT 97
[2023-07-28 07:11] LABS: BASOPHILS % (AUTO) 0.2 % (0.0-2.0); EOSINOPHILS # (AUTO) 0.1 K/uL (0.0-0.7); EOSINOPHILS % (AUTO) 1.5 % (0.0-7.0); HEMATOCRIT 24.8 % (31.2-41.9); HEMOGLOBIN 8.8 g/dL (10.9-14.3); LYMPHOCYTES # (AUTO) 0.6 K/uL (0.8-4.8); LYMPHOCYTES % (AUTO) 12.3 % (20.5-51.5); MEAN CORPUSCULAR HEMOGLOBIN 32.8 uug (24.7-32.8); MEAN CORPUSCULAR HGB CONC 35 g/dL (32.3-35.6); MEAN CORPUSCULAR VOLUME 92.8 fL (75.5-95.3); MONOCYTES # (AUTO) 0.3 K/uL (0.1-1.30); MONOCYTES % (AUTO) 6.5 % (0.0-11.0); NEUTROPHILS # (AUTO) 3.9 K/uL (1.8-8.9); NEUTROPHILS % (AUTO) 79.5 % (38.5-71.5); PLATELET COUNT (AUTO) 314 K/uL (179-408); RED BLOOD CELL COUNT(AUTO) 2.68 MIL/uL (3.63-4.92); RED CELL DISTRIBUTION WIDTH 16.4 % (12.3-17.7); WHITE BLOOD COUNT (AUTO) 4.9 K/uL (3.8-11.8)
[2023-07-28 07:28] LABS: DIFFERENTIAL COMMENT 1
[2023-07-28 12:00] VITALS: BP 131/82; TEMP 97.6; O2SAT 96
[2023-07-28 16:00] VITALS: BP 134/91; TEMP 97.7; O2SAT 95
[2023-07-28 17:56] VITALS: O2SAT 97
[2023-07-28 20:00] VITALS: BP 119/83; TEMP 97.6; O2SAT 95
[2023-07-29 06:09] VITALS: BP 113/82; TEMP 97.6; O2SAT 98
[2023-07-29 11:48] VITALS: BP 136/91; TEMP 97.5; O2SAT 98
[2023-07-29 15:58] VITALS: O2SAT 96
[2023-07-29 16:05] VITALS: BP 128/75; TEMP 98.1; O2SAT 99
[2023-07-29 20:00] VITALS: BP 118/71; TEMP 97.5; O2SAT 95
[2023-07-29] MEDS: TIGECYCLINE 50 MG in IV DEXTROSE 5% 50 ML IV SCH (20:30)
[2023-07-29 20:42] LABS: BASOPHILS % (AUTO) 0.4 % (0.0-2.0); EOSINOPHILS # (AUTO) 0.1 K/uL (0.0-0.7); EOSINOPHILS % (AUTO) 0.9 % (0.0-7.0); HEMATOCRIT 25.7 % (31.2-41.9); LYMPHOCYTES # (AUTO) 0.9 K/uL (0.8-4.8); LYMPHOCYTES % (AUTO) 11.9 % (20.5-51.5); MEAN CORPUSCULAR HEMOGLOBIN 32.3 uug (24.7-32.8); MEAN CORPUSCULAR HGB CONC 35 g/dL (32.3-35.6); MEAN CORPUSCULAR VOLUME 92.7 fL (75.5-95.3); MONOCYTES # (AUTO) 0.6 K/uL (0.1-1.30); MONOCYTES % (AUTO) 8.3 % (0.0-11.0); NEUTROPHILS # (AUTO) 5.8 K/uL (1.8-8.9); NEUTROPHILS % (AUTO) 78.5 % (38.5-71.5); PLATELET COUNT (AUTO) 366 K/uL (179-408); RED BLOOD CELL COUNT(AUTO) 2.77 MIL/uL (3.63-4.92); RED CELL DISTRIBUTION WIDTH 16.6 % (12.3-17.7); WHITE BLOOD COUNT (AUTO) 7.3 K/uL (3.8-11.8)
[2023-07-29 20:44] LABS: DIFFERENTIAL COMMENT 1
[2023-07-29 23:19] VITALS: O2SAT 96
[2023-07-30 07:33] LABS: BASOPHILS % (AUTO) 0.3 % (0.0-2.0); EOSINOPHILS # (AUTO) 0.1 K/uL (0.0-0.7); EOSINOPHILS % (AUTO) 0.8 % (0.0-7.0); HEMATOCRIT 24.6 % (31.2-41.9); HEMOGLOBIN 8.8 g/dL (10.9-14.3); LYMPHOCYTES # (AUTO) 1.1 K/uL (0.8-4.8); LYMPHOCYTES % (AUTO) 17.1 % (20.5-51.5); MEAN CORPUSCULAR HEMOGLOBIN 33.1 uug (24.7-32.8); MEAN CORPUSCULAR HGB CONC 36 g/dL (32.3-35.6); MONOCYTES # (AUTO) 0.7 K/uL (0.1-1.30); MONOCYTES % (AUTO) 10.7 % (0.0-11.0); NEUTROPHILS # (AUTO) 4.4 K/uL (1.8-8.9); NEUTROPHILS % (AUTO) 71.1 % (38.5-71.5); PLATELET COUNT (AUTO) 372 K/uL (179-408); RED BLOOD CELL COUNT(AUTO) 2.65 MIL/uL (3.63-4.92); RED CELL DISTRIBUTION WIDTH 16.1 % (12.3-17.7); WHITE BLOOD COUNT (AUTO) 6.2 K/uL (3.8-11.8)
[2023-07-30 07:46] LABS: DIFFERENTIAL COMMENT 1
[2023-07-30 07:53] LABS: CREATININE 0.6 mg/dL (0.6-1.3); POTASSIUM 3.2 mmol/L (3.5-5.1)
[2023-07-30 08:12] LABS: CALCIUM 8.4 mg/dL (8.5-10.1)
[2023-07-30] MEDS: POTASSIUM CHLORIDE 20 MEQ TAB.PRT.SR PO ONE (09:09)
[2023-07-30 11:31] VITALS: BP 121/77; TEMP 97.8; O2SAT 100
[2023-07-30] MEDS: REMEDY ESSENTIAL ZINC PASTE 113 GM TOP PRN (13:53)
[2023-07-30 15:56] VITALS: BP 123/83; TEMP 97.7; O2SAT 100
[2023-07-30 16:05] VITALS: O2SAT 98
[2023-07-30] MEDS: levoFLOXacin 500 MG TABLET PO SCH (17:40)
[2023-07-30 18:06] LABS: BILIRUBIN,DIRECT 0.2 mg/dL (0.0-0.2); BILIRUBIN,TOTAL 0.3 mg/dL (0.2-1.0)
[2023-07-30 19:40] VITALS: BP 133/91; TEMP 98.3; O2SAT 98
[2023-07-31 01:39] VITALS: O2SAT 98
[2023-07-31 06:05] VITALS: BP 123/64; TEMP 97.7; O2SAT 100
[2023-07-31 07:17] LABS: BASOPHILS % (AUTO) 0.5 % (0.0-2.0); EOSINOPHILS # (AUTO) 0.3 K/uL (0.0-0.7); EOSINOPHILS % (AUTO) 4.8 % (0.0-7.0); HEMATOCRIT 25.5 % (31.2-41.9); HEMOGLOBIN 9.2 g/dL (10.9-14.3); LYMPHOCYTES # (AUTO) 0.9 K/uL (0.8-4.8); LYMPHOCYTES % (AUTO) 13.6 % (20.5-51.5); MEAN CORPUSCULAR HEMOGLOBIN 33.2 uug (24.7-32.8); MEAN CORPUSCULAR HGB CONC 36 g/dL (32.3-35.6); MONOCYTES # (AUTO) 0.9 K/uL (0.1-1.30); MONOCYTES % (AUTO) 12.7 % (0.0-11.0); NEUTROPHILS # (AUTO) 4.7 K/uL (1.8-8.9); NEUTROPHILS % (AUTO) 68.4 % (38.5-71.5); PLATELET COUNT (AUTO) 356 K/uL (179-408); RED BLOOD CELL COUNT(AUTO) 2.77 MIL/uL (3.63-4.92); RED CELL DISTRIBUTION WIDTH 17.2 % (12.3-17.7); WHITE BLOOD COUNT (AUTO) 6.8 K/uL (3.8-11.8)
[2023-07-31 07:39] LABS: CALCIUM 8.2 mg/dL (8.5-10.1); CARBON DIOXIDE 24 mmol/L (21-32); CHLORIDE 109 mmol/L (98-107); CREATININE 0.5 mg/dL (0.6-1.3); GLUCOSE 86 mg/dL (74-106); POTASSIUM 2.9 mmol/L (3.5-5.1); SODIUM SERUM 141 mmol/L (136-145); UREA NITROGEN, BLOOD 16 mg/dL (7-18)
[2023-07-31 07:40] LABS: DIFFERENTIAL COMMENT 1
[2023-07-31 07:45] LABS: ALBUMIN 1.9 g/dL (3.4-5.0); BILIRUBIN,DIRECT 0.1 mg/dL (0.0-0.2); BILIRUBIN,TOTAL 0.4 mg/dL (0.2-1.0); TOTAL PROTEIN, SERUM 5.3 g/dL (6.4-8.2)
[2023-07-31] MEDS: methylPREDNISolone SOD SUCC 40 MG/ML VIAL IV SCH (08:18)
[2023-07-31] MEDS: POTASSIUM CHLORIDE 20 MEQ TAB.PRT.SR PO ONE (10:14)
[2023-07-31 12:00] VITALS: O2SAT 98
[2023-07-31 12:02] VITALS: BP 135/93; TEMP 98.4; O2SAT 99
[2023-07-31 16:00] VITALS: BP 130/80; TEMP 98; O2SAT 99
[2023-07-31] MEDS: diphenhydrAMINE 50 MG/1 ML VIAL IV PRN (18:09)
[2023-07-31 19:20] VITALS: BP 126/91; TEMP 98.2; O2SAT 98
[2023-08-01] VITALS (7 sets, daily range): BP systolic 98–127; BP diastolic 54–88; TEMP 97.6–98.5; O2SAT 97–100
[2023-08-01 06:40] LABS: BASOPHILS # (AUTO) 0.2 K/UL (0.0-0.2); BASOPHILS % (AUTO) 3.6 % (0.0-2.0); EOSINOPHILS # (AUTO) 0.3 K/uL (0.0-0.7); EOSINOPHILS % (AUTO) 5.6 % (0.0-7.0); HEMATOCRIT 34.4 % (31.2-41.9); HEMOGLOBIN 11.5 g/dL (10.9-14.3); LYMPHOCYTES % (AUTO) 20.2 % (20.5-51.5); MEAN CORPUSCULAR HEMOGLOBIN 31.6 uug (24.7-32.8); MEAN CORPUSCULAR HGB CONC 33 g/dL (32.3-35.6); MEAN CORPUSCULAR VOLUME 94.8 fL (75.5-95.3); MONOCYTES # (AUTO) 0.3 K/uL (0.1-1.30); MONOCYTES % (AUTO) 6.4 % (0.0-11.0); NEUTROPHILS # (AUTO) 3.3 K/uL (1.8-8.9); NEUTROPHILS % (AUTO) 64.2 % (38.5-71.5); PLATELET COUNT (AUTO) 384 K/uL (179-408); RED BLOOD CELL COUNT(AUTO) 3.63 MIL/uL (3.63-4.92); WHITE BLOOD COUNT (AUTO) 5.1 K/uL (3.8-11.8)
[2023-08-01 06:51] LABS: CREATININE 0.7 mg/dL (0.6-1.3); POTASSIUM 3.8 mmol/L (3.5-5.1)
[2023-08-01 06:55] LABS: DIFFERENTIAL COMMENT 1
[2023-08-01 07:18] LABS: CALCIUM 8.7 mg/dL (8.5-10.1)
[2023-08-01] MEDS: PREGABALIN 100 MG CAPSULE PO SCH (17:06)
[2023-08-01] MEDS: CALAMINE LOTION 120 ML BOTTLE TOP SCH (17:09)
[2023-08-02 06:37] VITALS: BP 102/57; TEMP 97.7; O2SAT 97
[2023-08-02 11:49] VITALS: BP 104/69; TEMP 98; O2SAT 98
[2023-08-02 15:22] VITALS: BP 125/84; TEMP 97.8; O2SAT 98
[2023-08-02] MEDS ORDERED: PREG50CA PO (16:05)
[2023-08-02] MEDS ORDERED: TIGE50VI IV (16:05)
[2023-08-02] MEDS ORDERED: PANT40TA49 PO (16:05)
[2023-08-02] MEDS ORDERED: DIPH25CA83 PO (16:05)
[2023-08-02] MEDS ORDERED: TRIA15CR4 TOP (16:05)
[2023-08-02] MEDS ORDERED: ALPR0.25 PO (16:05)
[2023-08-02] MEDS ORDERED: HYDR-3980 PO (16:05)
[2023-08-02] MEDS ORDERED: LEVO500T90 PO (16:05)
[2023-08-02] MEDS ORDERED: ENOX40DI SQ (16:05)
[2023-08-02] MEDS: PREGABALIN 50 MG CAPSULE PO SCH (16:07)
[2023-08-02 16:35] VITALS: O2SAT 99
== END 2023-08-02 19:45 | DRG 720 ==
LOC: ER 15:10 → MEDSURG3 21:34 → TELE3 23:08 → MEDSURG3 07-02 09:30
PROVIDERS: ADMIT Internal Medicine; ATTEND Internal Medicine
PROC: 05HB33Z Insertion of Infusion Device into Right Basilic Vein, Percutaneous Approach (ICD-10-PCS; principal; 2023-07-21)
PROC: B246ZZ4 Ultrasonography of Right and Left Heart, Transesophageal (ICD-10-PCS; 2023-07-27)
PROC: 02HV33Z Insertion of Infusion Device into Superior Vena Cava, Percutaneous Approach (ICD-10-PCS; 2023-08-02)
PROC: B548ZZA Ultrasonography of Superior Vena Cava, Guidance (ICD-10-PCS; 2023-08-02)
DX: A41.9 Sepsis, unspecified organism (principal); E43 Unspecified severe protein-calorie malnutrition; E87.20 Acidosis, unspecified; D61.818 Other pancytopenia; K68.12 Psoas muscle abscess; M60.004 Infective myositis, unspecified left leg; J90 Pleural effusion, not elsewhere classified; D70.9 Neutropenia, unspecified; K76.0 Fatty (change of) liver, not elsewhere classified; K70.10 Alcoholic hepatitis without ascites; L03.115 Cellulitis of right lower limb; L03.116 Cellulitis of left lower limb; F10.10 Alcohol abuse, uncomplicated; E88.09 Other disorders of plasma-protein metabolism, not elsewhere classified; E87.6 Hypokalemia; M25.462 Effusion, left knee; R60.1 Generalized edema; M46.46 Discitis, unspecified, lumbar region; J98.11 Atelectasis; I82.612 Acute embolism and thrombosis of superficial veins of left upper extremity; N39.0 Urinary tract infection, site not specified; B96.1 Klebsiella pneumoniae [K. pneumoniae] as the cause of diseases classified elsewhere; M46.26 Osteomyelitis of vertebra, lumbar region; L27.0 Generalized skin eruption due to drugs and medicaments taken internally; T36.7X5A Adverse effect of antifungal antibiotics, systemically used, initial encounter; Y92.230 Patient room in hospital as the place of occurrence of the external cause; R26.81 Unsteadiness on feet; E83.10 Disorder of iron metabolism, unspecified; Z91.81 History of falling; M25.511 Pain in right shoulder; M20.099 Other deformity of finger(s), unspecified finger(s); G89.29 Other chronic pain; Z94.7 Corneal transplant status; Z75.1 Person awaiting admission to adequate facility elsewhere; M79.2 Neuralgia and neuritis, unspecified; D75.839 Thrombocytosis, unspecified; D75.89 Other specified diseases of blood and blood-forming organs; R50.81 Fever presenting with conditions classified elsewhere; F10.11 Alcohol abuse, in remission; F11.90 Opioid use, unspecified, uncomplicated; R79.89 Other specified abnormal findings of blood chemistry
CPT/HCPCS: 36415; 36569; 70030-TC; 71045; 71260; 72158; 73020; 73120; 82746; 82784; 83010; 83550; 83605; 83615; 83690; 83735; 84100; 84155; 84165; 84443; 84484; 84550; 85025; 85651; 85730; 86038; 86140; 86334; 86430; 86592; 86706; 86803; 86880; 87040; 87340; 87806; 88185; 93005; 93307; 93312; A4663; A6209; A9150; A9575; G0378; J0690; J0692; J0696; J1200; J1442; J1650; J2185; J2248; J2270; J2543; J2920; J3243; J3370; J3490; J7040; J7050; Q9967